=== PATIENT | female | born 1955 | race African-American/Black ===

== ENCOUNTER 2017-08-09 23:03 | Emergency (ER) | payer MEDICARE, OTHER ==
[~2017-08-09] VITALS: Ht 152.4 cm; Wt 75.0 kg
[~2017-08-09 23:03] MED LIST: CINA30 PO; DIVA500T35 PO; FISH1CAP49 PO; GLIP10 PO; METF500T4 PO; QUET25TA PO
[2017-08-09] MEDS ORDERED: CANA100T PO (23:18)
[2017-08-09] MEDS ORDERED: 0.9% SODIUM CHLORIDE 5 ML NEB SOLUTION NEB ONE (23:25)
[2017-08-09 23:28] LABS: GLUCOSE,POINT OF CARE 216 MG/DL (70-110)
[2017-08-09] MEDS ORDERED: IPRATROPIUM BROMIDE 0.5 MG/2.5 ML NEB SOLUTION NEB ONE (23:30)
[2017-08-09] MEDS ORDERED: ALBUTEROL SULFATE 5 MG/ML 20 ML NEB SOLN [BULK] NEB ONE (23:30)
[2017-08-10 02:31] LABS: BASOPHILS % (AUTO) 0.5 % (0.0-2.0); EOSINOPHILS % (AUTO) 0.1 % (1.0-6.0); HEMATOCRIT 50.7 % (36-46); HEMOGLOBIN 17.1 g/dL (12.0-16.0); LYMPHOCYTES % (AUTO) 14.2 % (22.0-44.0); MEAN CORPUSCULAR HEMOGLOBIN 32.3 pg (26.0-34.0); MEAN CORPUSCULAR HGB CONC 33.7 G/dL (31.0-37.0); MEAN CORPUSCULAR VOLUME 96 fL (80-100); MONOCYTES # (AUTO) 1.6 K/uL (0.1-1.0); MONOCYTES % (AUTO) 11.8 % (2.0-9.0); NEUTROPHILS # (AUTO) 10.1 K/uL (1.8-7.7); NEUTROPHILS % (AUTO) 73.4 % (40.0-70.0); PLATELET COUNT (AUTO) 214 K/uL (150-450); RED CELL DISTRIBUTION WIDTH 15.2 % (11.5-14.5)
[2017-08-10 02:38] LABS: ANION GAP 8 mmol/L (8-16); CALCIUM, TOTAL 10.4 mg/dL (8.8-10.5); CARBON DIOXIDE 27 mmol/L (22-29); CHLORIDE 104 mmol/L (98-107); CREATININE 1.04 mg/dL (0.60-1.30); GLOMERULAR FILTR. RATE CALC > 60 mL/min (>60); GLUCOSE,RANDOM 188 mg/dL (70-110); POTASSIUM 4.7 mmol/L (3.5-5.1); SODIUM SERUM 139 mmol/L (136-145); UREA NITROGEN, BLOOD 12 mg/dL (7-18)
[2017-08-10 02:41] LABS: INR 0.9 (0.9-1.1); PROTHROMBIN TIME 9.5 SEC (9.4-11.6)
[2017-08-10] MEDS ORDERED: MethylPREDNISolone SOD SUCC 125 MG/2 ML VIAL IVP ONE (02:45)
[2017-08-10 03:03] LABS: ALANINE AMINOTRANSFERASE 42 U/L (12-78); ALBUMIN 3.8 g/dL (3.4-5.0); ALKALINE PHOSPHATASE 99 U/L (46-116); ASPARTATE AMINOTRANSFERASE 35 U/L (15-37); BILIRUBIN,TOTAL 0.3 mg/dL (0.1-1.0); CKMB RELATIVE INDEX 1.3 % (0.0-4.0); CREATINE KINASE MB 10.9 ng/mL (0-5); CREATINE KINASE, TOTAL 811 U/L (26-192); TOTAL PROTEIN, SERUM 8.6 g/dL (6.4-8.2)
[2017-08-10 03:13] LABS: B-TYPE NATRIURETIC PEPTIDE < 5 pg/mL (0-100)
[2017-08-10 04:28] VITALS: BP 141/94
== END 2017-08-10 05:09 | disposition home or self-care (01) ==
LOC: EMS 23:05
DX: J45.909 Unspecified asthma, uncomplicated (principal); E11.9 Type 2 diabetes mellitus without complications; E03.9 Hypothyroidism, unspecified; F17.210 Nicotine dependence, cigarettes, uncomplicated; Z91.018 Allergy to other foods
CPT/HCPCS: 36415; 71045; 80053; 82550; 82553; 82962; 83880; 84484; 85025; 85610; 85730; 93005; 94644; 96374; 99285; J2930

== ENCOUNTER 2017-09-02 11:59 | Inpatient (IN) | payer MEDICARE, MEDICAID ==
[~2017-09-02] VITALS: Ht 160 cm; Wt 69.4 kg
[~2017-09-02 11:59] MED LIST changes: +CANA100T PO
[2017-09-02] MEDS ORDERED: INSULIN REGULAR, HUMAN 100 UNITS/ML IVP ONE (12:30)
[2017-09-02] MEDS ORDERED: SODIUM CHLORIDE 0.9% 2,000 ML IV ONE (12:30)
[2017-09-02 12:32] LABS: GLUCOSE,POINT OF CARE > 600 MG/DL (70-110)
[2017-09-02 13:13] LABS: BASOPHILS % (AUTO) 0.6 % (0.0-2.0); EOSINOPHILS % (AUTO) 0.3 % (1.0-6.0); HEMATOCRIT 50.9 % (36-46); HEMOGLOBIN 17.3 g/dL (12.0-16.0); LYMPHOCYTES # (AUTO) 2.3 K/uL (1.0-4.8); LYMPHOCYTES % (AUTO) 27.2 % (22.0-44.0); MEAN CORPUSCULAR HEMOGLOBIN 32.1 pg (26.0-34.0); MEAN CORPUSCULAR HGB CONC 34.1 G/dL (31.0-37.0); MEAN CORPUSCULAR VOLUME 94 fL (80-100); MONOCYTES # (AUTO) 0.8 K/uL (0.1-1.0); MONOCYTES % (AUTO) 9.1 % (2.0-9.0); NEUTROPHILS # (AUTO) 5.3 K/uL (1.8-7.7); NEUTROPHILS % (AUTO) 62.8 % (40.0-70.0); PLATELET COUNT (AUTO) 238 K/uL (150-450); RED BLOOD CELL COUNT(AUTO) 5.41 MIL/uL (4.00-5.20); RED CELL DISTRIBUTION WIDTH 14.2 % (11.5-14.5)
[2017-09-02 13:32] LABS: ALANINE AMINOTRANSFERASE 100 U/L (12-78); ALBUMIN 3.4 g/dL (3.4-5.0); ALKALINE PHOSPHATASE 190 U/L (46-116); ANION GAP 10 mmol/L (8-16); ASPARTATE AMINOTRANSFERASE 50 U/L (15-37); BILIRUBIN,TOTAL 0.4 mg/dL (0.1-1.0); CALCIUM, TOTAL 10.9 mg/dL (8.8-10.5); CARBON DIOXIDE 25 mmol/L (22-29); CHLORIDE 93 mmol/L (98-107); CREATININE 1.27 mg/dL (0.60-1.30); GLOMERULAR FILTR. RATE CALC 52 mL/min (>60); POTASSIUM 4.9 mmol/L (3.5-5.1); SODIUM SERUM 128 mmol/L (136-145); TOTAL PROTEIN, SERUM 8.2 g/dL (6.4-8.2); UREA NITROGEN, BLOOD 18 mg/dL (7-18)
[2017-09-02 13:37] LABS: GLUCOSE,RANDOM 613 mg/dL (70-110); VALPROIC ACID < 3 mcg/mL (50-100)
[2017-09-02] MEDS ORDERED: MetFORMIN HCL 500 MG TABLET PO ONE (14:45)
[2017-09-02] MEDS ORDERED: GlipiZIDE 10 MG TABLET PO ONE (14:45)
[2017-09-02] MEDS ORDERED: LORazepam 2 MG TABLET PO ONE (14:45)
[2017-09-02] MEDS ORDERED: SODIUM CHLORIDE 0.9% 1,000 ML IV ONE (14:45)
[2017-09-02] MEDS ORDERED: GlipiZIDE 5 MG TABLET PO ONE (14:45)
[2017-09-02] MEDS ORDERED: HALOPERIDOL 5 MG TABLET PO ONE (14:45)
[2017-09-02 15:17] LABS: AMPHET/METH SCREEN,URINE NEGATIVE (NEGATIVE); BARBITURATE SCREEN, URINE NEGATIVE (NEGATIVE); BENZODIAZEPINES SCREEN,URINE NEGATIVE (NEGATIVE); CANNABINOID SCREEN,URINE NEGATIVE (NEGATIVE); COCAINE SCREEN,URINE NEGATIVE (NEGATIVE); METHADONE SCREEN, URINE NEGATIVE (NEGATIVE); OPIATE SCREEN,URINE NEGATIVE (NEGATIVE); PHENCYCLIDINE SCREEN,URINE NEGATIVE (NEGATIVE)
[2017-09-02 15:22] LABS: APPEARANCE,URINE CLEAR (CLEAR); BILIRUBIN,URINE NEGATIVE (NEGATIVE); GLUCOSE, URINE (UA) >=1000 mg/dL (NEGATIVE); KETONES,URINE 15 mg/dL (NEGATIVE); LEUKOCYTE ESTERASE ,URINE NEGATIVE (NEGATIVE); NITRATE,URINE NEGATIVE (NEGATIVE); OCCULT BLOOD,URINE NEGATIVE (NEGATIVE); PH,URINE 5.5 (5.0-8.0); PROTEIN,URINE NEGATIVE (NEGATIVE); UROBILINOGEN,URINE 0.2 mg/dL (<=1.0)
[2017-09-02 15:27] LABS: GLUCOSE,POINT OF CARE 292 MG/DL (70-110)
[2017-09-02] MEDS: DiphenhydrAMINE HCL 25 MG CAPSULE PO ONE ×2 (15:39→15:45)
[2017-09-02 15:44] LABS: BACTERIA,URINE Rare /HPF (None Seen); RBC,URINE 0-2 /HPF (0-2); SQUAMOUS EPITHELIAL CELL,UR Few /LPF (None Seen); WBC,URINE 0-2 /HPF (0-5)
[2017-09-02] MEDS ORDERED: ZOLPIDEM TARTRATE 10 MG TABLET PO PRN (16:30)
[2017-09-02] MEDS ORDERED: HALOPERIDOL 5 MG TABLET PO PRN (16:30)
[2017-09-02] MEDS ORDERED: LORazepam 2 MG TABLET PO PRN (16:30)
[2017-09-02 16:52] LABS: GLUCOSE,POINT OF CARE 271 MG/DL (70-110)
[2017-09-02 17:30] VITALS: BP 164/81
[2017-09-02 18:45] VITALS: BP 150/89
[2017-09-02] MEDS ORDERED: DEXTROSE 50%-WATER 25 GM/50 ML SYRINGE IVP PRN (19:00)
[2017-09-02] MEDS ORDERED: PNEUMOCOCCAL VACCINE POLYVALENT 0.5 ML VIAL [PPSV23] IM ONE (20:00)
[2017-09-02] MEDS ORDERED: INFLUENZA VIRUS VACCINE QVS 2017-18 (3YR+)/PF 60 MCG/0.5 ML SYRINGE IM ONE (20:00)
[2017-09-03 00:30] VITALS: BP 139/85
[2017-09-03 05:43] LABS: GLUCOMETER DEV NAME(LOC) 3EI B; GLUCOSE,POINT OF CARE 358 MG/DL (70-110)
[2017-09-03] MEDS: MetFORMIN HCL 500 MG TABLET PO SCH ×2 (06:52→17:43)
[2017-09-03] MEDS: GlipiZIDE 10 MG TABLET PO SCH ×2 (06:53→16:46)
[2017-09-03] MEDS: CINACALCET HCL 30 MG TABLET PO SCH (06:53)
[2017-09-03 06:57] LABS: HEMOGLOBIN A1C 10.1 % (4.5-6.2)
[2017-09-03] MEDS ORDERED: CANAGLIFLOZIN 100 MG TABLET PO SCH (07:00)
[2017-09-03 07:11] LABS: FREE T4 (FREE THYROXINE) 1.2 ng/dL (0.76-1.46); THYROID STIMULATING HORMONE 3.72 uIU/mL (0.36-3.74)
[2017-09-03] MEDS: INSULIN ASPART 100 UNITS/ML - NON-FORMULARY SQ PRN ×3 (07:17→20:28)
[2017-09-03 08:20] VITALS: BP 165/76
[2017-09-03] MEDS: OMEGA-3/DHA/EPA/FISH OIL 1,000 MG CAPSULE PO SCH ×2 (08:36→16:46)
[2017-09-03] MEDS: ASPIRIN 81 MG CHEWABLE TABLET PO SCH (08:36)
[2017-09-03 11:12] LABS: GLUCOMETER DEV NAME(LOC) 3EX 1; GLUCOSE,POINT OF CARE 256 MG/DL (70-110)
[2017-09-03] MEDS: LISINOPRIL 5 MG TABLET PO SCH (12:12)
[2017-09-03 16:32] LABS: GLUCOMETER DEV NAME(LOC) 3EX 1; GLUCOSE,POINT OF CARE 503 MG/DL (70-110)
[2017-09-03 16:52] LABS: GLUCOMETER DEV NAME(LOC) 3EX 1; GLUCOSE,POINT OF CARE 501 MG/DL (70-110)
[2017-09-03] MEDS ORDERED: INSULIN ASPART 100 UNITS/ML - NON-FORMULARY SQ ONE (17:00)
[2017-09-03 19:31] VITALS: BP 134/77
[2017-09-03] MEDS: DIVALPROEX SODIUM 500 MG DR TABLET PO SCH (20:19)
[2017-09-03] MEDS: QUEtiapine FUMARATE 200 MG TABLET PO SCH (20:22)
[2017-09-03 20:27] LABS: GLUCOMETER DEV NAME(LOC) 3EX 1; GLUCOSE,POINT OF CARE 213 MG/DL (70-110)
[2017-09-03] MEDS ORDERED: INSULIN GLARGINE,HUM.REC.ANLOG 100 UNITS/ML SQ SCH ×2 (21:00)
[2017-09-04 02:05] VITALS: BP 129/79
[2017-09-04 06:38] LABS: GLUCOMETER DEV NAME(LOC) 3EX 1; GLUCOSE,POINT OF CARE 346 MG/DL (70-110)
[2017-09-04 06:39] LABS: BASOPHILS % (AUTO) 0.3 % (0.0-2.0); EOSINOPHILS % (AUTO) 0.8 % (1.0-6.0); HEMOGLOBIN 15.5 g/dL (12.0-16.0); LYMPHOCYTES # (AUTO) 3.4 K/uL (1.0-4.8); LYMPHOCYTES % (AUTO) 41.4 % (22.0-44.0); MEAN CORPUSCULAR HEMOGLOBIN 32.3 pg (26.0-34.0); MEAN CORPUSCULAR HGB CONC 34.4 G/dL (31.0-37.0); MEAN CORPUSCULAR VOLUME 94 fL (80-100); MONOCYTES # (AUTO) 0.8 K/uL (0.1-1.0); MONOCYTES % (AUTO) 9.7 % (2.0-9.0); NEUTROPHILS % (AUTO) 47.8 % (40.0-70.0); PLATELET COUNT (AUTO) 211 K/uL (150-450); RED BLOOD CELL COUNT(AUTO) 4.79 MIL/uL (4.00-5.20); RED CELL DISTRIBUTION WIDTH 14.2 % (11.5-14.5)
[2017-09-04] MEDS: GlipiZIDE 10 MG TABLET PO SCH ×2 (06:47→16:17)
[2017-09-04] MEDS: CINACALCET HCL 30 MG TABLET PO SCH (06:47)
[2017-09-04] MEDS: MetFORMIN HCL 500 MG TABLET PO SCH ×2 (06:47→16:41)
[2017-09-04] MEDS: INSULIN ASPART 100 UNITS/ML - NON-FORMULARY SQ PRN ×5 (07:27→21:16)
[2017-09-04 07:30] LABS: ALANINE AMINOTRANSFERASE 82 U/L (12-78); ALBUMIN 2.7 g/dL (3.4-5.0); ALKALINE PHOSPHATASE 142 U/L (46-116); ANION GAP 8 mmol/L (8-16); ASPARTATE AMINOTRANSFERASE 41 U/L (15-37); BILIRUBIN,TOTAL 0.3 mg/dL (0.1-1.0); CALCIUM, TOTAL 10.4 mg/dL (8.8-10.5); CARBON DIOXIDE 26 mmol/L (22-29); CHLORIDE 101 mmol/L (98-107); CKMB RELATIVE INDEX 3.7 % (0.0-4.0); CREATINE KINASE, TOTAL 242 U/L (26-192); CREATININE 1.06 mg/dL (0.60-1.30); GLOMERULAR FILTR. RATE CALC > 60 mL/min (>60); GLUCOSE,RANDOM 388 mg/dL (70-110); POTASSIUM 4.4 mmol/L (3.5-5.1); SODIUM SERUM 135 mmol/L (136-145); TOTAL PROTEIN, SERUM 6.6 g/dL (6.4-8.2); UREA NITROGEN, BLOOD 14 mg/dL (7-18)
[2017-09-04 08:30] VITALS: BP 148/79
[2017-09-04] MEDS ORDERED: FLUCONAZOLE 150 MG TABLET PO ONE (09:00)
[2017-09-04 09:50] LABS: FOLATE SERUM 6.4 ng/mL (5.4-)
[2017-09-04] MEDS: LISINOPRIL 5 MG TABLET PO SCH (10:03)
[2017-09-04] MEDS: ASPIRIN 81 MG CHEWABLE TABLET PO SCH (10:04)
[2017-09-04] MEDS: OMEGA-3/DHA/EPA/FISH OIL 1,000 MG CAPSULE PO SCH ×2 (10:04→16:17)
[2017-09-04] MEDS: DIVALPROEX SODIUM 500 MG DR TABLET PO SCH ×2 (10:04→20:16)
[2017-09-04] MEDS: MetroNIDAZOLE 500 MG TABLET PO SCH ×2 (10:47→16:17)
[2017-09-04 11:12] LABS: GLUCOMETER DEV NAME(LOC) 3EX 1; GLUCOSE,POINT OF CARE 291 MG/DL (70-110)
[2017-09-04 16:31] LABS: GLUCOMETER DEV NAME(LOC) 3EX 1; GLUCOSE,POINT OF CARE 351 MG/DL (70-110)
[2017-09-04 18:24] VITALS: BP 150/77
[2017-09-04] MEDS: QUEtiapine FUMARATE 200 MG TABLET PO SCH (20:17)
[2017-09-04 20:22] LABS: GLUCOMETER DEV NAME(LOC) 3EX 1; GLUCOSE,POINT OF CARE 151 MG/DL (70-110)
[2017-09-04] MEDS ORDERED: INSULIN GLARGINE,HUM.REC.ANLOG 100 UNITS/ML SQ SCH (21:00)
[2017-09-05 05:04] VITALS: BP 165/88
[2017-09-05 05:28] LABS: GLUCOMETER DEV NAME(LOC) 3EI B; GLUCOSE,POINT OF CARE 335 MG/DL (70-110)
[2017-09-05 05:45] VITALS: BP 141/86
[2017-09-05] MEDS: MetFORMIN HCL 500 MG TABLET PO SCH ×2 (07:01→16:53)
[2017-09-05] MEDS: CINACALCET HCL 30 MG TABLET PO SCH (07:01)
[2017-09-05] MEDS: GlipiZIDE 10 MG TABLET PO SCH ×2 (07:01→16:14)
[2017-09-05] MEDS: INSULIN ASPART 100 UNITS/ML - NON-FORMULARY SQ PRN ×4 (07:17→20:56)
[2017-09-05] MEDS: MetroNIDAZOLE 500 MG TABLET PO SCH ×2 (08:56→16:14)
[2017-09-05] MEDS: ASPIRIN 81 MG CHEWABLE TABLET PO SCH (08:56)
[2017-09-05] MEDS: MAGNESIUM OXIDE 400 MG TABLET PO SCH (08:56)
[2017-09-05] MEDS: OMEGA-3/DHA/EPA/FISH OIL 1,000 MG CAPSULE PO SCH ×2 (08:56→16:14)
[2017-09-05] MEDS: DIVALPROEX SODIUM 500 MG DR TABLET PO SCH ×2 (08:56→20:50)
[2017-09-05] MEDS: LISINOPRIL 5 MG TABLET PO SCH (08:57)
[2017-09-05 09:26] VITALS: BP 163/73
[2017-09-05 11:28] LABS: GLUCOMETER DEV NAME(LOC) 3EX 1; GLUCOSE,POINT OF CARE 177 MG/DL (70-110)
[2017-09-05] MEDS ORDERED: CloNIDine HCL 0.1 MG TABLET PO PRN (13:45)
[2017-09-05 16:17] LABS: GLUCOMETER DEV NAME(LOC) 3EX 1; GLUCOSE,POINT OF CARE 193 MG/DL (70-110)
[2017-09-05] MEDS ORDERED: INSULIN GLARGINE,HUM.REC.ANLOG 100 UNITS/ML SQ SCH (17:00)
[2017-09-05 17:38] VITALS: BP 136/75
[2017-09-05] MEDS: QUEtiapine FUMARATE 200 MG TABLET PO SCH (20:50)
[2017-09-05 20:57] LABS: GLUCOMETER DEV NAME(LOC) 3EX 1; GLUCOSE,POINT OF CARE 428 MG/DL (70-110)
[2017-09-05] MEDS ORDERED: INSULIN ASPART 100 UNITS/ML - NON-FORMULARY SQ ONE (21:30)
[2017-09-06 01:00] VITALS: BP 139/70
[2017-09-06 05:43] LABS: GLUCOMETER DEV NAME(LOC) 3EI B; GLUCOSE,POINT OF CARE 220 MG/DL (70-110)
[2017-09-06] MEDS: INSULIN GLARGINE,HUM.REC.ANLOG 100 UNITS/ML SQ SCH ×2 (07:09→17:00)
[2017-09-06] MEDS: INSULIN ASPART 100 UNITS/ML - NON-FORMULARY SQ PRN ×2 (07:10→12:28)
[2017-09-06] MEDS: MetFORMIN HCL 500 MG TABLET PO SCH ×2 (07:21→17:06)
[2017-09-06] MEDS: GlipiZIDE 10 MG TABLET PO SCH ×2 (07:21→17:05)
[2017-09-06] MEDS: CINACALCET HCL 30 MG TABLET PO SCH (07:25)
[2017-09-06] MEDS: DIVALPROEX SODIUM 500 MG DR TABLET PO SCH (08:30)
[2017-09-06] MEDS: ASPIRIN 81 MG CHEWABLE TABLET PO SCH (08:31)
[2017-09-06] MEDS: OMEGA-3/DHA/EPA/FISH OIL 1,000 MG CAPSULE PO SCH ×2 (08:31→17:05)
[2017-09-06] MEDS: MetroNIDAZOLE 500 MG TABLET PO SCH ×2 (08:31→17:05)
[2017-09-06] MEDS: MAGNESIUM OXIDE 400 MG TABLET PO SCH (08:32)
[2017-09-06] MEDS ORDERED: LISINOPRIL 20 MG TABLET PO SCH (09:00)
[2017-09-06 09:04] VITALS: BP 137/78
[2017-09-06 12:12] LABS: GLUCOMETER DEV NAME(LOC) 3EX 1; GLUCOSE,POINT OF CARE 112 MG/DL (70-110)
[2017-09-06] MEDS ORDERED: LISI-662 PO (14:34)
[2017-09-06] MEDS ORDERED: MAGOX PO (14:35)
[2017-09-06] MEDS ORDERED: METR500 PO (14:36)
[2017-09-06] MEDS ORDERED: INSLAN SQ (14:37)
[2017-09-06] MEDS ORDERED: ASPI81 PO (14:37)
[2017-09-06 17:07] LABS: GLUCOMETER DEV NAME(LOC) 3EX 1; GLUCOSE,POINT OF CARE 269 MG/DL (70-110)
== END 2017-09-06 17:15 | disposition home or self-care (01) | DRG 885 ==
LOC: EMS 12:00 → 3EX 17:16
DX: F31.2 Bipolar disorder, current episode manic severe with psychotic features (principal); E11.65 Type 2 diabetes mellitus with hyperglycemia; R45.851 Suicidal ideations; M62.82 Rhabdomyolysis; E87.1 Hypo-osmolality and hyponatremia; B96.89 Other specified bacterial agents as the cause of diseases classified elsewhere; E03.9 Hypothyroidism, unspecified; E55.9 Vitamin D deficiency, unspecified; E78.5 Hyperlipidemia, unspecified; N76.0 Acute vaginitis; F17.210 Nicotine dependence, cigarettes, uncomplicated; I10 Essential (primary) hypertension; R01.1 Cardiac murmur, unspecified; Z79.899 Other long term (current) drug therapy; Z91.14 Patient's other noncompliance with medication regimen; Z91.018 Allergy to other foods; Z79.84 Long term (current) use of oral hypoglycemic drugs
CPT/HCPCS: 80074; 82306; 82607; 82746; 82962; 83036; 83735; 84439; 84443; 96361; 96374; 99285; G0480; J1815; J7030

== ENCOUNTER 2017-09-10 01:05 | Emergency (ER) | payer MEDICARE, OTHER ==
[~2017-09-10] VITALS: Ht 162.6 cm; Wt 72.7 kg
[~2017-09-10 01:05] MED LIST changes: +ASPI81 PO; -CANA100T PO; +INSLAN SQ; +LISI-662 PO; +MAGOX PO; +METR500 PO
[2017-09-10] MEDS ORDERED: INSULIN REGULAR, HUMAN 100 UNITS/ML IVP ONE (02:00)
[2017-09-10 02:12] LABS: GLUCOSE,POINT OF CARE 582 MG/DL (70-110)
[2017-09-10 02:43] LABS: BASOPHILS % (AUTO) 0.8 % (0.0-2.0); EOSINOPHILS % (AUTO) 0.5 % (1.0-6.0); HEMATOCRIT 44.8 % (36-46); HEMOGLOBIN 15.1 g/dL (12.0-16.0); LYMPHOCYTES # (AUTO) 3.1 K/uL (1.0-4.8); LYMPHOCYTES % (AUTO) 35.2 % (22.0-44.0); MEAN CORPUSCULAR HEMOGLOBIN 31.8 pg (26.0-34.0); MEAN CORPUSCULAR HGB CONC 33.8 G/dL (31.0-37.0); MEAN CORPUSCULAR VOLUME 94 fL (80-100); MONOCYTES # (AUTO) 0.8 K/uL (0.1-1.0); MONOCYTES % (AUTO) 9.2 % (2.0-9.0); NEUTROPHILS # (AUTO) 4.8 K/uL (1.8-7.7); NEUTROPHILS % (AUTO) 54.3 % (40.0-70.0); PLATELET COUNT (AUTO) 241 K/uL (150-450); RED BLOOD CELL COUNT(AUTO) 4.76 MIL/uL (4.00-5.20); RED CELL DISTRIBUTION WIDTH 14.4 % (11.5-14.5)
[2017-09-10 03:02] LABS: GLUCOSE,POINT OF CARE 428 MG/DL (70-110)
[2017-09-10 03:07] LABS: ALBUMIN 2.9 g/dL (3.4-5.0); BILIRUBIN,TOTAL 0.4 mg/dL (0.1-1.0); CALCIUM, TOTAL 10.4 mg/dL (8.8-10.5); CREATININE 1.17 mg/dL (0.60-1.30); POTASSIUM 4.1 mmol/L (3.5-5.1)
[2017-09-10 04:19] VITALS: BP 127/71
== END 2017-09-10 04:23 | disposition home or self-care (01) ==
LOC: EMS 01:06
DX: S80.11XA Contusion of right lower leg, initial encounter (principal); S00.03XA Contusion of scalp, initial encounter; E11.65 Type 2 diabetes mellitus with hyperglycemia; F31.9 Bipolar disorder, unspecified; E11.9 Type 2 diabetes mellitus without complications; E03.9 Hypothyroidism, unspecified; F17.210 Nicotine dependence, cigarettes, uncomplicated; Z91.018 Allergy to other foods; Z79.4 Long term (current) use of insulin; W18.39XA Other fall on same level, initial encounter; Y93.89 Activity, other specified; Y92.89 Other specified places as the place of occurrence of the external cause; Y99.8 Other external cause status
CPT/HCPCS: 36415; 73590; 73630; 80053; 82962; 85025; 96374; 99285; J1815

== ENCOUNTER 2017-09-19 23:59 | Inpatient (IN) | payer MEDICARE, MEDICAID ==
[~2017-09-19] VITALS: Ht 167.6 cm; Wt 69.9 kg
[2017-09-20 01:53] LABS: EOSINOPHILS % (AUTO) 0.7 % (1.0-6.0); HEMATOCRIT 43.5 % (36-46); HEMOGLOBIN 14.7 g/dL (12.0-16.0); LYMPHOCYTES # (AUTO) 2.6 K/uL (1.0-4.8); LYMPHOCYTES % (AUTO) 31.3 % (22.0-44.0); MEAN CORPUSCULAR HEMOGLOBIN 31.7 pg (26.0-34.0); MEAN CORPUSCULAR HGB CONC 33.7 G/dL (31.0-37.0); MEAN CORPUSCULAR VOLUME 94 fL (80-100); MONOCYTES # (AUTO) 0.7 K/uL (0.1-1.0); NEUTROPHILS # (AUTO) 4.8 K/uL (1.8-7.7); PLATELET COUNT (AUTO) 238 K/uL (150-450); RED BLOOD CELL COUNT(AUTO) 4.62 MIL/uL (4.00-5.20); RED CELL DISTRIBUTION WIDTH 14.7 % (11.5-14.5)
[2017-09-20 01:56] LABS: ALANINE AMINOTRANSFERASE 82 U/L (12-78); ALKALINE PHOSPHATASE 180 U/L (46-116); ANION GAP 11 mmol/L (8-16); ASPARTATE AMINOTRANSFERASE 53 U/L (15-37); BILIRUBIN,TOTAL 0.3 mg/dL (0.1-1.0); CALCIUM, TOTAL 10.1 mg/dL (8.8-10.5); CARBON DIOXIDE 24 mmol/L (22-29); CHLORIDE 99 mmol/L (98-107); CREATININE 1.15 mg/dL (0.60-1.30); GLOMERULAR FILTR. RATE CALC 58 mL/min (>60); POTASSIUM 3.9 mmol/L (3.5-5.1); SODIUM SERUM 134 mmol/L (136-145); UREA NITROGEN, BLOOD 13 mg/dL (7-18)
[2017-09-20 02:00] LABS: GLUCOSE,RANDOM 590 mg/dL (70-110); VALPROIC ACID < 3 mcg/mL (50-100)
[2017-09-20] MEDS ORDERED: INSULIN REGULAR, HUMAN 100 UNITS/ML IVP ONE ×2 (02:15→04:45)
[2017-09-20] MEDS ORDERED: SODIUM CHLORIDE 0.9% 1,000 ML IV ONE ×2 (02:15→06:00)
[2017-09-20] MEDS ORDERED: LORazepam 2 MG/ML VIAL IM ONE (02:45)
[2017-09-20] MEDS ORDERED: DiphenhydrAMINE HCL 50 MG/ML VIAL IM ONE (02:45)
[2017-09-20] MEDS ORDERED: HALOPERIDOL LACTATE 5 MG/ML VIAL IM ONE (02:45)
[2017-09-20] MEDS ORDERED: HALOPERIDOL 5 MG TABLET PO PRN (03:45)
[2017-09-20] MEDS ORDERED: ACETAMINOPHEN 325 MG TABLET PO PRN (07:00)
[2017-09-20] MEDS ORDERED: IBUPROFEN 400 MG TABLET PO PRN (07:00)
[2017-09-20 08:45] VITALS: BP 152/77
[2017-09-20] MEDS: MAGNESIUM OXIDE 400 MG TABLET PO SCH (09:00)
[2017-09-20] MEDS: OMEGA-3/DHA/EPA/FISH OIL 1,000 MG CAPSULE PO SCH ×2 (10:00→16:43)
[2017-09-20] MEDS ORDERED: INFLUENZA VIRUS VACCINE QVS 2017-18 (3YR+)/PF 60 MCG/0.5 ML SYRINGE IM ONE (10:45)
[2017-09-20] MEDS ORDERED: PNEUMOCOCCAL VACCINE POLYVALENT 0.5 ML VIAL [PPSV23] IM ONE (10:45)
[2017-09-20] MEDS ORDERED: GLUCAGON,HUMAN RECOMBINANT 1 MG VIAL IM PRN (12:15)
[2017-09-20] MEDS: MetFORMIN HCL 500 MG TABLET PO SCH ×2 (12:25→18:11)
[2017-09-20] MEDS: LISINOPRIL 20 MG TABLET PO SCH (12:25)
[2017-09-20] MEDS: ASPIRIN 81 MG CHEWABLE TABLET PO SCH (12:25)
[2017-09-20] MEDS: DIVALPROEX SODIUM 500 MG DR TABLET PO SCH ×2 (12:25→16:35)
[2017-09-20] MEDS: INSULIN ASPART 100 UNITS/ML - NON-FORMULARY SQ PRN ×3 (13:51→21:58)
[2017-09-20 14:05] LABS: GLUCOSE,POINT OF CARE 563 MG/DL (70-110)
[2017-09-20 14:05] LABS: GLUCOSE,POINT OF CARE 332 MG/DL (70-110)
[2017-09-20 14:05] LABS: GLUCOSE,POINT OF CARE 464 MG/DL (70-110)
[2017-09-20 14:07] LABS: GLUCOSE,POINT OF CARE 202 MG/DL (70-110)
[2017-09-20 14:08] LABS: GLUCOMETER DEV NAME(LOC) BV3S 2; GLUCOSE,POINT OF CARE 228 MG/DL (70-110)
[2017-09-20] MEDS ORDERED: FLUCONAZOLE 150 MG TABLET PO ONE (14:45)
[2017-09-20 16:00] VITALS: BP 150/80
[2017-09-20] MEDS ORDERED: INSULIN GLARGINE,HUM.REC.ANLOG 100 UNITS/ML SQ SCH (16:30)
[2017-09-20] MEDS: CINACALCET HCL 30 MG TABLET PO SCH (16:34)
[2017-09-20] MEDS: GlipiZIDE 10 MG TABLET PO SCH (16:34)
[2017-09-20 17:27] LABS: GLUCOMETER DEV NAME(LOC) BV3S 2; GLUCOSE,POINT OF CARE 321 MG/DL (70-110)
[2017-09-20 17:35] VITALS: BP 120/66
[2017-09-21 00:13] VITALS: BP 121/80
[2017-09-21] MEDS: GlipiZIDE 10 MG TABLET PO SCH ×2 (06:41→16:09)
[2017-09-21] MEDS: MetFORMIN HCL 500 MG TABLET PO SCH ×2 (06:41→16:54)
[2017-09-21] MEDS: CINACALCET HCL 30 MG TABLET PO SCH (06:41)
[2017-09-21] MEDS: INSULIN GLARGINE,HUM.REC.ANLOG 100 UNITS/ML SQ SCH ×2 (06:43→16:14)
[2017-09-21] MEDS: ASPIRIN 81 MG CHEWABLE TABLET PO SCH (08:39)
[2017-09-21] MEDS: DIVALPROEX SODIUM 500 MG DR TABLET PO SCH ×2 (08:39→16:08)
[2017-09-21] MEDS: LISINOPRIL 20 MG TABLET PO SCH (08:40)
[2017-09-21] MEDS: MAGNESIUM OXIDE 400 MG TABLET PO SCH (08:43)
[2017-09-21 08:49] VITALS: BP 134/68
[2017-09-21] MEDS ORDERED: QUEtiapine FUMARATE 200 MG TABLET PO SCH (09:00)
[2017-09-21] MEDS: OMEGA-3/DHA/EPA/FISH OIL 1,000 MG CAPSULE PO SCH ×2 (09:05→16:08)
[2017-09-21 09:14] LABS: CHOL/HDL RATIO 1.9 (3.9-5.7); THYROID STIMULATING HORMONE 4.81 uIU/mL (0.36-3.74)
[2017-09-21 09:42] LABS: AMPHET/METH SCREEN,URINE NEGATIVE (NEGATIVE); BARBITURATE SCREEN, URINE NEGATIVE (NEGATIVE); BENZODIAZEPINES SCREEN,URINE NEGATIVE (NEGATIVE); CANNABINOID SCREEN,URINE NEGATIVE (NEGATIVE); COCAINE SCREEN,URINE NEGATIVE (NEGATIVE); METHADONE SCREEN, URINE NEGATIVE (NEGATIVE); OPIATE SCREEN,URINE NEGATIVE (NEGATIVE)
[2017-09-21 09:45] LABS: PHENCYCLIDINE SCREEN,URINE NEGATIVE (NEGATIVE)
[2017-09-21 10:04] LABS: BILIRUBIN,URINE NEGATIVE (NEGATIVE); GLUCOSE, URINE (UA) >=1000 mg/dL (NEGATIVE); KETONES,URINE NEGATIVE (NEGATIVE); LEUKOCYTE ESTERASE ,URINE NEGATIVE (NEGATIVE); NITRATE,URINE NEGATIVE (NEGATIVE); OCCULT BLOOD,URINE NEGATIVE (NEGATIVE); PH,URINE 6.5 (5.0-8.0); PROTEIN,URINE NEGATIVE (NEGATIVE); UROBILINOGEN,URINE 0.2 mg/dL (<=1.0)
[2017-09-21 10:44] LABS: APPEARANCE,URINE HAZY (CLEAR); BACTERIA,URINE None Seen /HPF (None Seen); RBC,URINE 0-2 /HPF (0-2); SQUAMOUS EPITHELIAL CELL,UR Many /LPF (None Seen); WBC,URINE 0-2 /HPF (0-5)
[2017-09-21 12:18] LABS: GLUCOMETER DEV NAME(LOC) BV3S 2; GLUCOSE,POINT OF CARE 150 MG/DL (70-110)
[2017-09-21 12:18] LABS: GLUCOMETER DEV NAME(LOC) BV3S 2; GLUCOSE,POINT OF CARE 74 MG/DL (70-110)
[2017-09-21 12:18] LABS: GLUCOMETER DEV NAME(LOC) BV3S 2; GLUCOSE,POINT OF CARE 132 MG/DL (70-110)
[2017-09-21] MEDS: INSULIN ASPART 100 UNITS/ML - NON-FORMULARY SQ PRN ×2 (16:15→21:00)
[2017-09-21 17:39] VITALS: BP 138/72
[2017-09-21 17:58] LABS: GLUCOMETER DEV NAME(LOC) BV3S 2; GLUCOSE,POINT OF CARE 352 MG/DL (70-110)
[2017-09-21 21:07] LABS: GLUCOMETER DEV NAME(LOC) BV3S 2; GLUCOSE,POINT OF CARE 345 MG/DL (70-110)
[2017-09-21] MEDS: ZOLPIDEM TARTRATE 10 MG TABLET PO PRN (22:35)
[2017-09-22] MEDS: LORazepam 2 MG TABLET PO PRN (03:09)
[2017-09-22] MEDS: GlipiZIDE 10 MG TABLET PO SCH ×2 (07:01→17:08)
[2017-09-22] MEDS: CINACALCET HCL 30 MG TABLET PO SCH (07:01)
[2017-09-22] MEDS: MetFORMIN HCL 500 MG TABLET PO SCH ×2 (07:01→17:00)
[2017-09-22] MEDS: INSULIN GLARGINE,HUM.REC.ANLOG 100 UNITS/ML SQ SCH ×2 (07:06→17:07)
[2017-09-22] MEDS: INSULIN ASPART 100 UNITS/ML - NON-FORMULARY SQ PRN ×3 (07:07→21:16)
[2017-09-22 07:22] LABS: GLUCOMETER DEV NAME(LOC) BV3S 2; GLUCOSE,POINT OF CARE 206 MG/DL (70-110)
[2017-09-22] MEDS: DIVALPROEX SODIUM 500 MG DR TABLET PO SCH ×2 (08:16→17:00)
[2017-09-22] MEDS: ASPIRIN 81 MG CHEWABLE TABLET PO SCH (08:16)
[2017-09-22] MEDS: OMEGA-3/DHA/EPA/FISH OIL 1,000 MG CAPSULE PO SCH ×2 (08:16→17:00)
[2017-09-22] MEDS: MAGNESIUM OXIDE 400 MG TABLET PO SCH (08:16)
[2017-09-22] MEDS: LISINOPRIL 20 MG TABLET PO SCH (08:16)
[2017-09-22 08:36] VITALS: BP 159/80
[2017-09-22] MEDS ORDERED: QUEtiapine FUMARATE 200 MG TABLET PO SCH (09:00)
[2017-09-22] MEDS ORDERED: QUEtiapine FUMARATE 200 MG TABLET PO ONE (09:00)
[2017-09-22 15:12] LABS: GLUCOMETER DEV NAME(LOC) BV3S 2; GLUCOSE,POINT OF CARE 110 MG/DL (70-110)
[2017-09-22 16:33] VITALS: BP 135/87
[2017-09-22 17:58] LABS: GLUCOMETER DEV NAME(LOC) BV3S 2; GLUCOSE,POINT OF CARE 192 MG/DL (70-110)
[2017-09-22] MEDS: QUEtiapine FUMARATE 200 MG TABLET PO SCH (20:56)
[2017-09-22] MEDS: ZOLPIDEM TARTRATE 10 MG TABLET PO PRN (20:56)
[2017-09-22 21:02] LABS: GLUCOMETER DEV NAME(LOC) BV3S 2; GLUCOSE,POINT OF CARE 245 MG/DL (70-110)
[2017-09-23 05:27] VITALS: BP 112/80
[2017-09-23] MEDS: GlipiZIDE 10 MG TABLET PO SCH ×2 (06:46→16:24)
[2017-09-23] MEDS: MetFORMIN HCL 500 MG TABLET PO SCH ×2 (06:46→16:24)
[2017-09-23] MEDS: CINACALCET HCL 30 MG TABLET PO SCH (06:46)
[2017-09-23] MEDS: INSULIN GLARGINE,HUM.REC.ANLOG 100 UNITS/ML SQ SCH ×2 (07:06→17:12)
[2017-09-23] MEDS: DIVALPROEX SODIUM 500 MG DR TABLET PO SCH ×2 (08:10→16:24)
[2017-09-23] MEDS: ASPIRIN 81 MG CHEWABLE TABLET PO SCH (08:10)
[2017-09-23] MEDS: MAGNESIUM OXIDE 400 MG TABLET PO SCH (08:10)
[2017-09-23] MEDS: LISINOPRIL 20 MG TABLET PO SCH (08:10)
[2017-09-23] MEDS: OMEGA-3/DHA/EPA/FISH OIL 1,000 MG CAPSULE PO SCH ×2 (08:10→16:24)
[2017-09-23 08:26] VITALS: BP 108/65
[2017-09-23] MEDS ORDERED: HYDROCORTISONE 1% 30 GM OINTMENT TP PRN (11:00)
[2017-09-23 11:12] LABS: GLUCOMETER DEV NAME(LOC) BV3S 2; GLUCOSE,POINT OF CARE 124 MG/DL (70-110)
[2017-09-23 11:12] LABS: GLUCOMETER DEV NAME(LOC) BV3S 2; GLUCOSE,POINT OF CARE 146 MG/DL (70-110)
[2017-09-23] MEDS: INSULIN ASPART 100 UNITS/ML - NON-FORMULARY SQ PRN ×3 (11:45→20:35)
[2017-09-23 16:26] VITALS: BP 122/64
[2017-09-23 16:42] LABS: GLUCOMETER DEV NAME(LOC) BV3S 2; GLUCOSE,POINT OF CARE 239 MG/DL (70-110)
[2017-09-23] MEDS: QUEtiapine FUMARATE 200 MG TABLET PO SCH (20:51)
[2017-09-23] MEDS: ZOLPIDEM TARTRATE 10 MG TABLET PO PRN (20:51)
[2017-09-23 21:18] LABS: GLUCOMETER DEV NAME(LOC) BV3S 2; GLUCOSE,POINT OF CARE 180 MG/DL (70-110)
[2017-09-24 05:47] VITALS: BP 110/61
[2017-09-24 06:17] LABS: GLUCOMETER DEV NAME(LOC) BV3S 2; GLUCOSE,POINT OF CARE 75 MG/DL (70-110)
[2017-09-24] MEDS: GlipiZIDE 10 MG TABLET PO SCH ×2 (06:46→16:19)
[2017-09-24] MEDS: CINACALCET HCL 30 MG TABLET PO SCH (06:47)
[2017-09-24] MEDS: MetFORMIN HCL 500 MG TABLET PO SCH ×2 (06:47→17:17)
[2017-09-24] MEDS: INSULIN GLARGINE,HUM.REC.ANLOG 100 UNITS/ML SQ SCH (06:53)
[2017-09-24 08:46] VITALS: BP 129/86
[2017-09-24 08:58] LABS: GLUCOMETER DEV NAME(LOC) BV3S 2; GLUCOSE,POINT OF CARE 137 MG/DL (70-110)
[2017-09-24] MEDS: MAGNESIUM OXIDE 400 MG TABLET PO SCH (09:50)
[2017-09-24] MEDS: OMEGA-3/DHA/EPA/FISH OIL 1,000 MG CAPSULE PO SCH ×2 (09:50→17:22)
[2017-09-24] MEDS: LISINOPRIL 20 MG TABLET PO SCH (09:50)
[2017-09-24] MEDS: ASPIRIN 81 MG CHEWABLE TABLET PO SCH (09:51)
[2017-09-24] MEDS: LORazepam 2 MG TABLET PO PRN ×2 (09:51→16:19)
[2017-09-24] MEDS: DIVALPROEX SODIUM 500 MG DR TABLET PO SCH ×2 (09:51→16:19)
[2017-09-24 16:15] VITALS: BP 146/76
[2017-09-24 17:32] LABS: GLUCOMETER DEV NAME(LOC) BV3S 2; GLUCOSE,POINT OF CARE 176 MG/DL (70-110)
[2017-09-24] MEDS: INSULIN ASPART 100 UNITS/ML - NON-FORMULARY SQ PRN ×2 (17:46→21:25)
[2017-09-24] MEDS: QUEtiapine FUMARATE 200 MG TABLET PO SCH (20:29)
[2017-09-24 22:07] LABS: GLUCOMETER DEV NAME(LOC) BV3S 2; GLUCOSE,POINT OF CARE 152 MG/DL (70-110)
[2017-09-25 06:16] VITALS: BP 134/85
[2017-09-25] MEDS: GlipiZIDE 10 MG TABLET PO SCH ×2 (06:55→16:15)
[2017-09-25] MEDS: MetFORMIN HCL 500 MG TABLET PO SCH ×2 (06:56→17:19)
[2017-09-25] MEDS: CINACALCET HCL 30 MG TABLET PO SCH (06:56)
[2017-09-25] MEDS: INSULIN ASPART 100 UNITS/ML - NON-FORMULARY SQ PRN ×2 (07:10→17:27)
[2017-09-25] MEDS: INSULIN GLARGINE,HUM.REC.ANLOG 100 UNITS/ML SQ SCH ×2 (07:11→17:27)
[2017-09-25 08:11] VITALS: BP 119/65
[2017-09-25 08:14] VITALS: BP 119/65
[2017-09-25] MEDS: LISINOPRIL 20 MG TABLET PO SCH (08:27)
[2017-09-25] MEDS: ASPIRIN 81 MG CHEWABLE TABLET PO SCH (08:27)
[2017-09-25] MEDS: DIVALPROEX SODIUM 500 MG DR TABLET PO SCH ×2 (08:27→16:15)
[2017-09-25] MEDS: MAGNESIUM OXIDE 400 MG TABLET PO SCH (08:28)
[2017-09-25] MEDS: OMEGA-3/DHA/EPA/FISH OIL 1,000 MG CAPSULE PO SCH ×2 (08:28→16:15)
[2017-09-25 16:47] VITALS: BP 130/78
[2017-09-25 17:12] LABS: GLUCOMETER DEV NAME(LOC) BV3S 2; GLUCOSE,POINT OF CARE 103 MG/DL (70-110)
[2017-09-25 17:12] LABS: GLUCOMETER DEV NAME(LOC) BV3S 2; GLUCOSE,POINT OF CARE 291 MG/DL (70-110)
[2017-09-25 17:12] LABS: GLUCOMETER DEV NAME(LOC) BV3S 2; GLUCOSE,POINT OF CARE 245 MG/DL (70-110)
[2017-09-25] MEDS: QUEtiapine FUMARATE 200 MG TABLET PO SCH (21:16)
[2017-09-25 21:58] LABS: GLUCOMETER DEV NAME(LOC) BV3S 2; GLUCOSE,POINT OF CARE 129 MG/DL (70-110)
[2017-09-26] MEDS ORDERED: INSULIN GLARGINE,HUM.REC.ANLOG 100 UNITS/ML SQ SCH ×2 (06:30→16:30)
[2017-09-26] MEDS: GlipiZIDE 10 MG TABLET PO SCH ×2 (06:43→16:20)
[2017-09-26] MEDS: CINACALCET HCL 30 MG TABLET PO SCH (06:43)
[2017-09-26] MEDS: MetFORMIN HCL 500 MG TABLET PO SCH ×2 (06:43→16:57)
[2017-09-26 07:17] LABS: GLUCOMETER DEV NAME(LOC) BV3S 2; GLUCOSE,POINT OF CARE 48 MG/DL (70-110)
[2017-09-26 07:17] LABS: GLUCOMETER DEV NAME(LOC) BV3S 2; GLUCOSE,POINT OF CARE 90 MG/DL (70-110)
[2017-09-26 07:18] VITALS: BP 112/62
[2017-09-26 08:06] VITALS: BP 130/73
[2017-09-26] MEDS: DIVALPROEX SODIUM 500 MG DR TABLET PO SCH ×2 (09:55→16:57)
[2017-09-26] MEDS: MAGNESIUM OXIDE 400 MG TABLET PO SCH (09:55)
[2017-09-26] MEDS: OMEGA-3/DHA/EPA/FISH OIL 1,000 MG CAPSULE PO SCH ×2 (09:56→16:57)
[2017-09-26] MEDS: ASPIRIN 81 MG CHEWABLE TABLET PO SCH (09:56)
[2017-09-26] MEDS: LISINOPRIL 20 MG TABLET PO SCH (09:56)
[2017-09-26 11:57] LABS: GLUCOMETER DEV NAME(LOC) BV3S 2; GLUCOSE,POINT OF CARE 60 MG/DL (70-110)
[2017-09-26 16:10] VITALS: BP 149/95
[2017-09-26 17:30] VITALS: BP 138/88
[2017-09-26 18:22] LABS: GLUCOMETER DEV NAME(LOC) BV3S 2; GLUCOSE,POINT OF CARE 122 MG/DL (70-110)
[2017-09-26] MEDS: QUEtiapine FUMARATE 200 MG TABLET PO SCH (20:10)
[2017-09-26 20:28] LABS: GLUCOMETER DEV NAME(LOC) BV3S 2; GLUCOSE,POINT OF CARE 285 MG/DL (70-110)
[2017-09-26] MEDS ORDERED: GLUCAGON,HUMAN RECOMBINANT 1 MG VIAL IM PRN (21:00)
[2017-09-26] MEDS: INSULIN LISPRO 100 UNITS/ML SQ PRN (21:41)
[2017-09-26] MEDS: ZOLPIDEM TARTRATE 10 MG TABLET PO PRN (22:01)
[2017-09-27] MEDS: GlipiZIDE 10 MG TABLET PO SCH (06:30)
[2017-09-27] MEDS ORDERED: INSULIN GLARGINE,HUM.REC.ANLOG 100 UNITS/ML SQ SCH (06:30)
[2017-09-27] MEDS: MetFORMIN HCL 500 MG TABLET PO SCH ×2 (07:00→16:39)
[2017-09-27 07:03] VITALS: BP 128/72
[2017-09-27] MEDS: CINACALCET HCL 30 MG TABLET PO SCH (07:16)
[2017-09-27 07:17] LABS: GLUCOMETER DEV NAME(LOC) BV3S 2; GLUCOSE,POINT OF CARE 44 MG/DL (70-110)
[2017-09-27 07:17] LABS: GLUCOMETER DEV NAME(LOC) BV3S 2; GLUCOSE,POINT OF CARE 78 MG/DL (70-110)
[2017-09-27 08:08] VITALS: BP 133/64
[2017-09-27] MEDS: OMEGA-3/DHA/EPA/FISH OIL 1,000 MG CAPSULE PO SCH ×2 (08:49→16:40)
[2017-09-27] MEDS: DIVALPROEX SODIUM 500 MG DR TABLET PO SCH ×2 (08:50→16:40)
[2017-09-27] MEDS: ASPIRIN 81 MG CHEWABLE TABLET PO SCH (08:50)
[2017-09-27] MEDS: LISINOPRIL 20 MG TABLET PO SCH (08:50)
[2017-09-27] MEDS: MAGNESIUM OXIDE 400 MG TABLET PO SCH (08:50)
[2017-09-27] MEDS: INSULIN GLARGINE,HUM.REC.ANLOG 100 UNITS/ML SQ SCH ×2 (09:00→09:34)
[2017-09-27] MEDS: INSULIN LISPRO 100 UNITS/ML SQ PRN ×2 (11:44→16:49)
[2017-09-27 16:13] VITALS: BP 141/77
[2017-09-27] MEDS: GlipiZIDE 5 MG TABLET PO SCH (16:40)
[2017-09-27 17:02] LABS: GLUCOMETER DEV NAME(LOC) BV3S 2; GLUCOSE,POINT OF CARE 220 MG/DL (70-110)
[2017-09-27 17:02] LABS: GLUCOMETER DEV NAME(LOC) BV3S 2; GLUCOSE,POINT OF CARE 239 MG/DL (70-110)
[2017-09-27 17:02] LABS: GLUCOMETER DEV NAME(LOC) BV3S 2; GLUCOSE,POINT OF CARE 279 MG/DL (70-110)
[2017-09-27] MEDS: QUEtiapine FUMARATE 200 MG TABLET PO SCH (21:07)
[2017-09-27] MEDS: LORazepam 2 MG TABLET PO PRN (21:07)
[2017-09-27 21:12] LABS: GLUCOMETER DEV NAME(LOC) BV3S 2; GLUCOSE,POINT OF CARE 277 MG/DL (70-110)
[2017-09-28] MEDS: CINACALCET HCL 30 MG TABLET PO SCH (06:59)
[2017-09-28] MEDS: MetFORMIN HCL 500 MG TABLET PO SCH ×2 (07:00→16:26)
[2017-09-28] MEDS: GlipiZIDE 5 MG TABLET PO SCH (07:00)
[2017-09-28 07:16] LABS: GLUCOMETER DEV NAME(LOC) BV3S 2; GLUCOSE,POINT OF CARE 75 MG/DL (70-110)
[2017-09-28 07:17] VITALS: BP 113/68
[2017-09-28] MEDS: ASPIRIN 81 MG CHEWABLE TABLET PO SCH (08:43)
[2017-09-28] MEDS: DIVALPROEX SODIUM 500 MG DR TABLET PO SCH ×2 (08:43→16:25)
[2017-09-28] MEDS: LISINOPRIL 20 MG TABLET PO SCH (08:43)
[2017-09-28] MEDS: MAGNESIUM OXIDE 400 MG TABLET PO SCH (08:43)
[2017-09-28] MEDS: LORazepam 2 MG TABLET PO PRN (08:43)
[2017-09-28] MEDS: OMEGA-3/DHA/EPA/FISH OIL 1,000 MG CAPSULE PO SCH ×2 (08:44→16:26)
[2017-09-28 08:52] VITALS: BP 133/68
[2017-09-28] MEDS: INSULIN GLARGINE,HUM.REC.ANLOG 100 UNITS/ML SQ SCH (09:34)
[2017-09-28 11:17] LABS: GLUCOMETER DEV NAME(LOC) BV3S 2; GLUCOSE,POINT OF CARE 156 MG/DL (70-110)
[2017-09-28] MEDS: INSULIN LISPRO 100 UNITS/ML SQ PRN (12:23)
[2017-09-28] MEDS ORDERED: DIVA500T35 PO (13:53)
[2017-09-28] MEDS ORDERED: QUET200T29 PO (13:53)
[2017-09-28] MEDS ORDERED: GLIP5 PO (14:51)
[2017-09-28 16:00] VITALS: BP 132/81
[2017-09-28 16:57] LABS: GLUCOMETER DEV NAME(LOC) BV3S 2; GLUCOSE,POINT OF CARE 92 MG/DL (70-110)
[2017-09-29] MEDS ORDERED: GlipiZIDE 5 MG TABLET PO SCH (09:00)
[2017-09-29] MEDS ORDERED: INSULIN GLARGINE,HUM.REC.ANLOG 100 UNITS/ML SQ SCH (09:00)
== END 2017-09-28 18:50 | disposition home or self-care (01) | DRG 885 ==
LOC: EMS 09-20 → B3A 09-20 06:56
PROC: 3E0234Z Introduction of Serum, Toxoid and Vaccine into Muscle, Percutaneous Approach (ICD-10-PCS; principal; 2017-09-20)
DX: F31.2 Bipolar disorder, current episode manic severe with psychotic features (principal); E11.649 Type 2 diabetes mellitus with hypoglycemia without coma; E11.65 Type 2 diabetes mellitus with hyperglycemia; E03.9 Hypothyroidism, unspecified; F17.200 Nicotine dependence, unspecified, uncomplicated; G47.00 Insomnia, unspecified; F19.10 Other psychoactive substance abuse, uncomplicated; I10 Essential (primary) hypertension; Z79.899 Other long term (current) drug therapy; Z91.018 Allergy to other foods; Z79.84 Long term (current) use of oral hypoglycemic drugs; Z79.82 Long term (current) use of aspirin; Z79.4 Long term (current) use of insulin; Z23 Encounter for immunization
CPT/HCPCS: 80307; 82962; 83036; 84439; 84443; 96361; 96372; 96374; 99285; G0480; J1200; J1630; J1815; J2060; J7030

== ENCOUNTER 2018-01-20 20:50 | Inpatient (IN) | payer MEDICARE, MEDICAID ==
[~2018-01-20] VITALS: Ht 162.6 cm; Wt 72.2 kg
[~2018-01-20 20:50] MED LIST changes: +DIVA-78 PO; -DIVA500T35 PO; -GLIP10 PO; +GLIP5 PO; -METF500T4 PO; +METF500T6 PO; -METR500 PO; +QUET200T29 PO
[2018-01-20 21:40] LABS: EOSINOPHILS % (AUTO) 3.3 % (1.0-6.0); HEMATOCRIT 47.2 % (36-46); HEMOGLOBIN 16.5 g/dL (12.0-16.0); LYMPHOCYTES # (AUTO) 2.9 K/uL (1.0-4.8); LYMPHOCYTES % (AUTO) 44.9 % (22.0-44.0); MEAN CORPUSCULAR HEMOGLOBIN 33.3 pg (26.0-34.0); MEAN CORPUSCULAR VOLUME 95 fL (80-100); MONOCYTES # (AUTO) 0.6 K/uL (0.1-1.0); MONOCYTES % (AUTO) 8.8 % (2.0-9.0); NEUTROPHILS # (AUTO) 2.8 K/uL (1.8-7.7); PLATELET COUNT (AUTO) 264 K/uL (150-450); RED BLOOD CELL COUNT(AUTO) 4.96 MIL/uL (4.00-5.20); RED CELL DISTRIBUTION WIDTH 14.4 % (11.5-14.5)
[2018-01-20 21:44] LABS: ANION GAP 12 mmol/L (8-16); CALCIUM, TOTAL 10.6 mg/dL (8.8-10.5); CARBON DIOXIDE 24 mmol/L (22-29); CHLORIDE 105 mmol/L (98-107); CREATININE 1.26 mg/dL (0.60-1.30); GLOMERULAR FILTR. RATE CALC 52 mL/min (>60); GLUCOSE,RANDOM 125 mg/dL (70-110); SODIUM SERUM 141 mmol/L (136-145); UREA NITROGEN, BLOOD 15 mg/dL (7-18)
[2018-01-20 21:50] LABS: ALANINE AMINOTRANSFERASE 26 U/L (12-78); ALKALINE PHOSPHATASE 80 U/L (46-116); ASPARTATE AMINOTRANSFERASE 17 U/L (15-37); BILIRUBIN,TOTAL 0.2 mg/dL (0.1-1.0); TOTAL PROTEIN, SERUM 8.1 g/dL (6.4-8.2)
[2018-01-21 00:38] LABS: APPEARANCE,URINE TURBID (CLEAR); BILIRUBIN,URINE NEGATIVE (NEGATIVE); GLUCOSE, URINE (UA) >=1000 mg/dL (NEGATIVE); KETONES,URINE NEGATIVE (NEGATIVE); LEUKOCYTE ESTERASE ,URINE MODERATE (NEGATIVE); NITRATE,URINE POSITIVE (NEGATIVE); OCCULT BLOOD,URINE SMALL (NEGATIVE); PH,URINE 5.5 (5.0-8.0); PROTEIN,URINE NEGATIVE (NEGATIVE); UROBILINOGEN,URINE 0.2 mg/dL (<=1.0)
[2018-01-21 00:43] LABS: AMPHET/METH SCREEN,URINE NEGATIVE (NEGATIVE); BARBITURATE SCREEN, URINE NEGATIVE (NEGATIVE); BENZODIAZEPINES SCREEN,URINE NEGATIVE (NEGATIVE); CANNABINOID SCREEN,URINE NEGATIVE (NEGATIVE); COCAINE SCREEN,URINE NEGATIVE (NEGATIVE); METHADONE SCREEN, URINE NEGATIVE (NEGATIVE); OPIATE SCREEN,URINE NEGATIVE (NEGATIVE)
[2018-01-21 00:44] LABS: PHENCYCLIDINE SCREEN,URINE NEGATIVE (NEGATIVE)
[2018-01-21] MEDS ORDERED: ZOLPIDEM TARTRATE 10 MG TABLET PO PRN (00:45)
[2018-01-21] MEDS ORDERED: QUEtiapine FUMARATE 100 MG TABLET PO ONE (00:45)
[2018-01-21] MEDS ORDERED: LORazepam 2 MG TABLET PO PRN (00:45)
[2018-01-21] MEDS ORDERED: HALOPERIDOL 5 MG TABLET PO PRN (00:45)
[2018-01-21 00:51] LABS: THYROID STIMULATING HORMONE 3.22 uIU/mL (0.36-3.74); VALPROIC ACID 40 mcg/mL (50-100)
[2018-01-21 00:56] LABS: BACTERIA,URINE Moderate /HPF (None Seen); SQUAMOUS EPITHELIAL CELL,UR Few /LPF (None Seen)
[2018-01-21] MEDS ORDERED: NITROFURANTOIN/NITROFURAN MAC 100 MG CAPSULE [MACROBID] PO ONE (02:30)
[2018-01-21 09:21] VITALS: BP 155/70
[2018-01-21] MEDS: DIVALPROEX SODIUM 500 MG DR TABLET PO SCH (17:40)
[2018-01-21] MEDS ORDERED: CloNIDine HCL 0.1 MG TABLET PO PRN (19:15)
[2018-01-21] MEDS ORDERED: IBUPROFEN 400 MG TABLET PO PRN (19:15)
[2018-01-21] MEDS ORDERED: ONDANSETRON HCL 4 MG TABLET PO PRN (19:15)
[2018-01-21] MEDS ORDERED: ACETAMINOPHEN 325 MG TABLET PO PRN (19:15)
[2018-01-21] MEDS ORDERED: DOCUSATE SODIUM 100 MG CAPSULE PO PRN (19:15)
[2018-01-21] MEDS ORDERED: LOPERAMIDE HCL 2 MG CAPSULE PO PRN (19:15)
[2018-01-21] MEDS ORDERED: ALBUTEROL SULFATE HFA 90 MCG/PUFF 8 GM INHALER IH PRN (19:15)
[2018-01-21] MEDS ORDERED: MAG HYDROX/AL HYDROX/SIMETH ES 30 ML SUSPENSION UDCUP PO PRN (19:15)
[2018-01-21] MEDS ORDERED: MAGNESIUM HYDROXIDE SUSPENSION 30 ML UDCUP PO PRN (19:15)
[2018-01-21] MEDS ORDERED: PETROLATUM,WHITE 71 GM JELLY TP PRN (19:15)
[2018-01-21] MEDS: QUEtiapine FUMARATE 200 MG TABLET PO SCH (20:50)
[2018-01-22] MEDS ORDERED: PNEUMOCOCCAL VACCINE POLYVALENT 0.5 ML VIAL [PPSV23] IM ONE (05:30)
[2018-01-22] MEDS: MetFORMIN HCL 500 MG TABLET PO SCH ×2 (06:44→17:06)
[2018-01-22] MEDS: GlipiZIDE 5 MG TABLET PO SCH (06:44)
[2018-01-22] MEDS ORDERED: DEXTROSE 50%-WATER 25 GM/50 ML SYRINGE IVP PRN (06:45)
[2018-01-22 06:48] LABS: GLUCOMETER DEV NAME(LOC) 3EI B; GLUCOSE,POINT OF CARE 127 MG/DL (70-110)
[2018-01-22] MEDS: INSULIN GLARGINE,HUM.REC.ANLOG 100 UNITS/ML SQ SCH ×2 (06:51→17:07)
[2018-01-22] MEDS ORDERED: CINACALCET HCL 30 MG TABLET PO SCH (07:30)
[2018-01-22] MEDS: CIPROFLOXACIN HCL 250 MG TABLET PO SCH ×2 (09:03→17:06)
[2018-01-22] MEDS: ASPIRIN 81 MG CHEWABLE TABLET PO SCH (09:03)
[2018-01-22] MEDS: NICOTINE 14 MG/24 HOUR PATCH TD SCH (09:04)
[2018-01-22] MEDS: DIVALPROEX SODIUM 500 MG DR TABLET PO SCH ×2 (09:04→17:05)
[2018-01-22] MEDS: OMEGA-3/DHA/EPA/FISH OIL 1,000 MG CAPSULE PO SCH ×2 (09:04→17:06)
[2018-01-22] MEDS: LISINOPRIL 20 MG TABLET PO SCH (09:04)
[2018-01-22 09:36] VITALS: BP 139/85
[2018-01-22 11:38] LABS: GLUCOMETER DEV NAME(LOC) 3EX 1; GLUCOSE,POINT OF CARE 72 MG/DL (70-110)
[2018-01-22 17:19] LABS: GLUCOMETER DEV NAME(LOC) 3EX 1; GLUCOSE,POINT OF CARE 130 MG/DL (70-110)
[2018-01-22] MEDS ORDERED: HYDROCORTISONE 0.5% 30 GM CREAM TP PRN (20:15)
[2018-01-22 20:24] LABS: GLUCOMETER DEV NAME(LOC) 3EX 1; GLUCOSE,POINT OF CARE 156 MG/DL (70-110)
[2018-01-22] MEDS: QUEtiapine FUMARATE 200 MG TABLET PO SCH (21:09)
[2018-01-22] MEDS: INSULIN LISPRO 100 UNITS/ML SQ PRN (21:25)
[2018-01-22 21:52] VITALS: BP 138/82
[2018-01-23 06:30] LABS: GLUCOMETER DEV NAME(LOC) 3EX 1; GLUCOSE,POINT OF CARE 126 MG/DL (70-110)
[2018-01-23] MEDS: GlipiZIDE 5 MG TABLET PO SCH (06:48)
[2018-01-23] MEDS: INSULIN GLARGINE,HUM.REC.ANLOG 100 UNITS/ML SQ SCH ×2 (06:48→17:10)
[2018-01-23] MEDS: MetFORMIN HCL 500 MG TABLET PO SCH ×2 (06:48→17:33)
[2018-01-23 08:32] VITALS: BP 139/88
[2018-01-23] MEDS: ASPIRIN 81 MG CHEWABLE TABLET PO SCH (08:39)
[2018-01-23] MEDS: CIPROFLOXACIN HCL 250 MG TABLET PO SCH ×2 (08:39→16:20)
[2018-01-23] MEDS: DIVALPROEX SODIUM 500 MG DR TABLET PO SCH ×2 (08:40→16:20)
[2018-01-23] MEDS: OMEGA-3/DHA/EPA/FISH OIL 1,000 MG CAPSULE PO SCH ×2 (08:40→16:20)
[2018-01-23] MEDS: QUEtiapine FUMARATE 200 MG TABLET PO SCH ×2 (08:40→20:43)
[2018-01-23] MEDS: LISINOPRIL 20 MG TABLET PO SCH (08:40)
[2018-01-23] MEDS: MAGNESIUM OXIDE 400 MG TABLET PO SCH (08:40)
[2018-01-23] MEDS: NICOTINE 14 MG/24 HOUR PATCH TD SCH (08:44)
[2018-01-23 11:49] LABS: GLUCOMETER DEV NAME(LOC) 3EX 1; GLUCOSE,POINT OF CARE 150 MG/DL (70-110)
[2018-01-23] MEDS: INSULIN LISPRO 100 UNITS/ML SQ PRN (11:50)
[2018-01-23 16:33] LABS: GLUCOMETER DEV NAME(LOC) 3EX 1; GLUCOSE,POINT OF CARE 89 MG/DL (70-110)
[2018-01-23 17:22] VITALS: BP 140/61
[2018-01-23 20:44] LABS: GLUCOMETER DEV NAME(LOC) 3EX 1; GLUCOSE,POINT OF CARE 138 MG/DL (70-110)
[2018-01-24 03:40] VITALS: BP 156/89
[2018-01-24 05:43] LABS: GLUCOMETER DEV NAME(LOC) PVLAB139; GLUCOSE,POINT OF CARE 115 MG/DL (70-110)
[2018-01-24] MEDS: GlipiZIDE 5 MG TABLET PO SCH (07:00)
[2018-01-24] MEDS: INSULIN GLARGINE,HUM.REC.ANLOG 100 UNITS/ML SQ SCH ×2 (07:03→17:17)
[2018-01-24] MEDS: MetFORMIN HCL 500 MG TABLET PO SCH ×2 (07:07→17:12)
[2018-01-24] MEDS: CIPROFLOXACIN HCL 250 MG TABLET PO SCH (08:36)
[2018-01-24] MEDS: ASPIRIN 81 MG CHEWABLE TABLET PO SCH (08:36)
[2018-01-24] MEDS: MAGNESIUM OXIDE 400 MG TABLET PO SCH (08:37)
[2018-01-24] MEDS: DIVALPROEX SODIUM 500 MG DR TABLET PO SCH ×2 (08:37→16:09)
[2018-01-24] MEDS: QUEtiapine FUMARATE 200 MG TABLET PO SCH ×2 (08:37→20:16)
[2018-01-24] MEDS: LISINOPRIL 20 MG TABLET PO SCH (08:37)
[2018-01-24] MEDS: OMEGA-3/DHA/EPA/FISH OIL 1,000 MG CAPSULE PO SCH ×2 (08:37→16:09)
[2018-01-24] MEDS: NICOTINE 14 MG/24 HOUR PATCH TD SCH (08:40)
[2018-01-24 09:14] VITALS: BP 137/95
[2018-01-24 11:49] LABS: GLUCOMETER DEV NAME(LOC) 3EX 1; GLUCOSE,POINT OF CARE 61 MG/DL (70-110)
[2018-01-24] MEDS: CIPROFLOXACIN HCL 500 MG TABLET PO SCH (16:09)
[2018-01-24 16:48] LABS: GLUCOMETER DEV NAME(LOC) 3EX 1; GLUCOSE,POINT OF CARE 106 MG/DL (70-110)
[2018-01-24 17:00] VITALS: BP 151/60
[2018-01-24 20:29] LABS: GLUCOMETER DEV NAME(LOC) 3EX 1; GLUCOSE,POINT OF CARE 149 MG/DL (70-110)
[2018-01-24] MEDS: INSULIN LISPRO 100 UNITS/ML SQ PRN (20:38)
[2018-01-25 05:43] LABS: GLUCOMETER DEV NAME(LOC) PVLAB139; GLUCOSE,POINT OF CARE 110 MG/DL (70-110)
[2018-01-25] MEDS: GlipiZIDE 5 MG TABLET PO SCH (07:06)
[2018-01-25] MEDS: MetFORMIN HCL 500 MG TABLET PO SCH ×2 (07:07→16:45)
[2018-01-25] MEDS: INSULIN GLARGINE,HUM.REC.ANLOG 100 UNITS/ML SQ SCH ×2 (07:17→17:26)
[2018-01-25 08:05] VITALS: BP 142/66
[2018-01-25] MEDS: OMEGA-3/DHA/EPA/FISH OIL 1,000 MG CAPSULE PO SCH ×2 (08:26→16:45)
[2018-01-25] MEDS: DIVALPROEX SODIUM 500 MG DR TABLET PO SCH ×2 (08:26→16:45)
[2018-01-25] MEDS: CIPROFLOXACIN HCL 500 MG TABLET PO SCH ×2 (08:27→16:45)
[2018-01-25] MEDS: MAGNESIUM OXIDE 400 MG TABLET PO SCH (08:27)
[2018-01-25] MEDS: ASPIRIN 81 MG CHEWABLE TABLET PO SCH (08:27)
[2018-01-25] MEDS: QUEtiapine FUMARATE 300 MG TABLET PO SCH (08:27)
[2018-01-25] MEDS: LISINOPRIL 20 MG TABLET PO SCH (08:27)
[2018-01-25] MEDS: NICOTINE 14 MG/24 HOUR PATCH TD SCH (08:32)
[2018-01-25 11:18] LABS: GLUCOMETER DEV NAME(LOC) 3EX 1; GLUCOSE,POINT OF CARE 101 MG/DL (70-110)
[2018-01-25 16:28] LABS: GLUCOMETER DEV NAME(LOC) 3EX 1; GLUCOSE,POINT OF CARE 112 MG/DL (70-110)
[2018-01-25 19:32] VITALS: BP 123/63
[2018-01-25] MEDS: QUEtiapine FUMARATE 200 MG TABLET PO SCH (20:09)
[2018-01-25] MEDS: INSULIN LISPRO 100 UNITS/ML SQ PRN (20:15)
[2018-01-25 20:18] LABS: GLUCOMETER DEV NAME(LOC) 3EX 1; GLUCOSE,POINT OF CARE 176 MG/DL (70-110)
[2018-01-26 05:49] LABS: GLUCOMETER DEV NAME(LOC) PVLAB139; GLUCOSE,POINT OF CARE 103 MG/DL (70-110)
[2018-01-26] MEDS: INSULIN GLARGINE,HUM.REC.ANLOG 100 UNITS/ML SQ SCH ×2 (06:58→16:33)
[2018-01-26] MEDS: GlipiZIDE 5 MG TABLET PO SCH (07:04)
[2018-01-26] MEDS: MetFORMIN HCL 500 MG TABLET PO SCH ×2 (07:22→16:55)
[2018-01-26] MEDS: CIPROFLOXACIN HCL 500 MG TABLET PO SCH ×2 (08:28→16:23)
[2018-01-26] MEDS: DIVALPROEX SODIUM 500 MG DR TABLET PO SCH ×2 (08:28→16:23)
[2018-01-26] MEDS: LISINOPRIL 20 MG TABLET PO SCH (08:28)
[2018-01-26] MEDS: OMEGA-3/DHA/EPA/FISH OIL 1,000 MG CAPSULE PO SCH ×2 (08:28→16:23)
[2018-01-26] MEDS: QUEtiapine FUMARATE 300 MG TABLET PO SCH (08:28)
[2018-01-26] MEDS: MAGNESIUM OXIDE 400 MG TABLET PO SCH (08:28)
[2018-01-26] MEDS: ASPIRIN 81 MG CHEWABLE TABLET PO SCH (08:28)
[2018-01-26] MEDS: NICOTINE 14 MG/24 HOUR PATCH TD SCH (08:29)
[2018-01-26 11:17] VITALS: BP 136/81
[2018-01-26 12:29] LABS: GLUCOMETER DEV NAME(LOC) 3EX 1; GLUCOSE,POINT OF CARE 112 MG/DL (70-110)
[2018-01-26 16:03] LABS: GLUCOMETER DEV NAME(LOC) 3EX 1; GLUCOSE,POINT OF CARE 108 MG/DL (70-110)
[2018-01-26 19:54] VITALS: BP 153/87
[2018-01-26] MEDS: INSULIN LISPRO 100 UNITS/ML SQ PRN (20:17)
[2018-01-26 20:18] LABS: GLUCOMETER DEV NAME(LOC) 3EX 1; GLUCOSE,POINT OF CARE 179 MG/DL (70-110)
[2018-01-26] MEDS: QUEtiapine FUMARATE 200 MG TABLET PO SCH (21:02)
[2018-01-27 05:43] LABS: GLUCOMETER DEV NAME(LOC) PVLAB139; GLUCOSE,POINT OF CARE 88 MG/DL (70-110)
[2018-01-27 06:12] VITALS: BP 142/79
[2018-01-27] MEDS: GlipiZIDE 5 MG TABLET PO SCH (07:03)
[2018-01-27] MEDS: INSULIN GLARGINE,HUM.REC.ANLOG 100 UNITS/ML SQ SCH ×2 (07:06→17:11)
[2018-01-27] MEDS: MetFORMIN HCL 500 MG TABLET PO SCH ×2 (07:22→17:13)
[2018-01-27] MEDS: QUEtiapine FUMARATE 300 MG TABLET PO SCH (08:23)
[2018-01-27] MEDS: ASPIRIN 81 MG CHEWABLE TABLET PO SCH (08:23)
[2018-01-27] MEDS: OMEGA-3/DHA/EPA/FISH OIL 1,000 MG CAPSULE PO SCH ×2 (08:23→16:37)
[2018-01-27] MEDS: CIPROFLOXACIN HCL 500 MG TABLET PO SCH ×2 (08:23→16:37)
[2018-01-27] MEDS: MAGNESIUM OXIDE 400 MG TABLET PO SCH (08:23)
[2018-01-27] MEDS: DIVALPROEX SODIUM 500 MG DR TABLET PO SCH ×2 (08:23→16:37)
[2018-01-27] MEDS: LISINOPRIL 20 MG TABLET PO SCH (08:23)
[2018-01-27] MEDS: NICOTINE 14 MG/24 HOUR PATCH TD SCH (08:24)
[2018-01-27 10:35] VITALS: BP 147/70
[2018-01-27 11:28] LABS: GLUCOMETER DEV NAME(LOC) 3EX 1; GLUCOSE,POINT OF CARE 74 MG/DL (70-110)
[2018-01-27 16:49] LABS: GLUCOMETER DEV NAME(LOC) 3EX 1; GLUCOSE,POINT OF CARE 104 MG/DL (70-110)
[2018-01-27 19:19] VITALS: BP 147/84
[2018-01-27 20:24] LABS: GLUCOMETER DEV NAME(LOC) 3EX 1; GLUCOSE,POINT OF CARE 120 MG/DL (70-110)
[2018-01-27] MEDS: QUEtiapine FUMARATE 200 MG TABLET PO SCH (22:00)
[2018-01-28 05:33] LABS: GLUCOMETER DEV NAME(LOC) 3EX 1; GLUCOSE,POINT OF CARE 99 MG/DL (70-110)
[2018-01-28 05:56] VITALS: BP 138/79
[2018-01-28] MEDS: GlipiZIDE 5 MG TABLET PO SCH (06:31)
[2018-01-28] MEDS: MetFORMIN HCL 500 MG TABLET PO SCH ×2 (06:31→17:09)
[2018-01-28] MEDS: INSULIN GLARGINE,HUM.REC.ANLOG 100 UNITS/ML SQ SCH ×2 (07:01→17:00)
[2018-01-28 08:15] VITALS: BP 145/66
[2018-01-28] MEDS: QUEtiapine FUMARATE 300 MG TABLET PO SCH (09:03)
[2018-01-28] MEDS: DIVALPROEX SODIUM 500 MG DR TABLET PO SCH ×2 (09:03→16:35)
[2018-01-28] MEDS: LISINOPRIL 20 MG TABLET PO SCH (09:03)
[2018-01-28] MEDS: MAGNESIUM OXIDE 400 MG TABLET PO SCH (09:03)
[2018-01-28] MEDS: OMEGA-3/DHA/EPA/FISH OIL 1,000 MG CAPSULE PO SCH ×2 (09:03→16:35)
[2018-01-28] MEDS: CIPROFLOXACIN HCL 500 MG TABLET PO SCH ×2 (09:03→16:35)
[2018-01-28] MEDS: ASPIRIN 81 MG CHEWABLE TABLET PO SCH (09:03)
[2018-01-28] MEDS: NICOTINE 14 MG/24 HOUR PATCH TD SCH (10:43)
[2018-01-28 11:14] LABS: GLUCOMETER DEV NAME(LOC) 3EX 1; GLUCOSE,POINT OF CARE 111 MG/DL (70-110)
[2018-01-28] MEDS ORDERED: QUET200T PO (13:50)
[2018-01-28] MEDS ORDERED: QUET300T2 PO (13:51)
[2018-01-28] MEDS ORDERED: CIPR-278 PO (13:53)
== END 2018-01-28 17:15 | disposition home or self-care (01) | DRG 885 ==
LOC: EMS 20:51 → 3EX 01-21 06:50
PROVIDERS: ADMIT Psychiatry & Neurology Psychiatry; ATTEND Psychiatry & Neurology Psychiatry
DX: F31.2 Bipolar disorder, current episode manic severe with psychotic features (principal); N39.0 Urinary tract infection, site not specified; E03.9 Hypothyroidism, unspecified; E11.9 Type 2 diabetes mellitus without complications; E78.5 Hyperlipidemia, unspecified; E83.52 Hypercalcemia; F17.200 Nicotine dependence, unspecified, uncomplicated; F41.9 Anxiety disorder, unspecified; I10 Essential (primary) hypertension; L23.9 Allergic contact dermatitis, unspecified cause; Z91.14 Patient's other noncompliance with medication regimen; Z71.6 Tobacco abuse counseling; Z79.899 Other long term (current) drug therapy; Z28.21 Immunization not carried out because of patient refusal; Z79.4 Long term (current) use of insulin; Z79.84 Long term (current) use of oral hypoglycemic drugs
CPT/HCPCS: 84443; 87086; 99285; 99406; G0480; J1815

== ENCOUNTER 2018-02-17 14:53 | Emergency (ER) | payer MEDICARE, OTHER ==
[~2018-02-17] VITALS: Ht 165.1 cm; Wt 71.0 kg
[~2018-02-17 14:53] MED LIST changes: -CINA30 PO; +CIPR-278 PO; +QUET200T PO; -QUET200T29 PO; -QUET25TA PO; +QUET300T2 PO
[2018-02-17 15:48] LABS: GLUCOSE,POINT OF CARE 146 MG/DL (70-110)
[2018-02-17 16:29] LABS: EOSINOPHILS % (AUTO) 3.8 % (1.0-6.0); HEMATOCRIT 46.6 % (36-46); HEMOGLOBIN 15.5 g/dL (12.0-16.0); LYMPHOCYTES # (AUTO) 3.2 K/uL (1.0-4.8); LYMPHOCYTES % (AUTO) 49.9 % (22.0-44.0); MEAN CORPUSCULAR HEMOGLOBIN 32.6 pg (26.0-34.0); MEAN CORPUSCULAR HGB CONC 33.3 G/dL (31.0-37.0); MEAN CORPUSCULAR VOLUME 98 fL (80-100); MONOCYTES # (AUTO) 0.6 K/uL (0.1-1.0); MONOCYTES % (AUTO) 9.1 % (2.0-9.0); NEUTROPHILS # (AUTO) 2.3 K/uL (1.8-7.7); NEUTROPHILS % (AUTO) 36.2 % (40.0-70.0); PLATELET COUNT (AUTO) 200 K/uL (150-450); RED BLOOD CELL COUNT(AUTO) 4.75 MIL/uL (4.00-5.20); RED CELL DISTRIBUTION WIDTH 14.3 % (11.5-14.5)
[2018-02-17 16:37] LABS: ANION GAP 10 mmol/L (8-16); CALCIUM, TOTAL 10.7 mg/dL (8.8-10.5); CARBON DIOXIDE 25 mmol/L (22-29); CHLORIDE 108 mmol/L (98-107); CREATININE 1.01 mg/dL (0.60-1.30); GLOMERULAR FILTR. RATE CALC > 60 mL/min (>60); GLUCOSE,RANDOM 129 mg/dL (70-110); POTASSIUM 4.3 mmol/L (3.5-5.1); SODIUM SERUM 143 mmol/L (136-145); UREA NITROGEN, BLOOD 13 mg/dL (7-18)
[2018-02-17 16:48] LABS: AMMONIA 25 umol/L (11-32)
[2018-02-17 16:50] LABS: TROPONIN I < 0.02 ng/mL (0.00-0.05)
[2018-02-17 17:01] LABS: ALANINE AMINOTRANSFERASE 29 U/L (12-78); ALBUMIN 3.3 g/dL (3.4-5.0); ALKALINE PHOSPHATASE 72 U/L (46-116); ASPARTATE AMINOTRANSFERASE 19 U/L (15-37); BILIRUBIN,TOTAL 0.3 mg/dL (0.1-1.0); CKMB RELATIVE INDEX 1.4 % (0.0-4.0); CREATINE KINASE MB 5.2 ng/mL (0-5); CREATINE KINASE, TOTAL 382 U/L (26-192); TOTAL PROTEIN, SERUM 6.9 g/dL (6.4-8.2)
[2018-02-17 17:34] LABS: AMPHET/METH SCREEN,URINE NEGATIVE (NEGATIVE); APPEARANCE,URINE CLEAR (CLEAR); BARBITURATE SCREEN, URINE NEGATIVE (NEGATIVE); BENZODIAZEPINES SCREEN,URINE NEGATIVE (NEGATIVE); BILIRUBIN,URINE NEGATIVE (NEGATIVE); CANNABINOID SCREEN,URINE NEGATIVE (NEGATIVE); COCAINE SCREEN,URINE NEGATIVE (NEGATIVE); GLUCOSE, URINE (UA) >=1000 mg/dL (NEGATIVE); KETONES,URINE NEGATIVE (NEGATIVE); LEUKOCYTE ESTERASE ,URINE NEGATIVE (NEGATIVE); METHADONE SCREEN, URINE NEGATIVE (NEGATIVE); NITRATE,URINE NEGATIVE (NEGATIVE); OCCULT BLOOD,URINE NEGATIVE (NEGATIVE); OPIATE SCREEN,URINE NEGATIVE (NEGATIVE); PROTEIN,URINE NEGATIVE (NEGATIVE); UROBILINOGEN,URINE 0.2 mg/dL (<=1.0)
[2018-02-17 17:35] LABS: PHENCYCLIDINE SCREEN,URINE NEGATIVE (NEGATIVE)
[2018-02-17 17:45] LABS: BACTERIA,URINE None Seen /HPF (None Seen); RBC,URINE 0-2 /HPF (0-2); SQUAMOUS EPITHELIAL CELL,UR Few /LPF (None Seen); WBC,URINE 0-2 /HPF (0-5)
[2018-02-17 18:36] VITALS: BP 139/81
[2018-02-17] MEDS ORDERED: MAG HYDROX/AL HYDROX/SIMETH 30 ML SUSP UDCUP PO ONE (18:45)
== END 2018-02-17 18:43 | disposition home or self-care (01) ==
LOC: EMS 14:54
DX: T42.4X5A Adverse effect of benzodiazepines, initial encounter (principal); E03.9 Hypothyroidism, unspecified; E11.9 Type 2 diabetes mellitus without complications; F31.9 Bipolar disorder, unspecified; F17.210 Nicotine dependence, cigarettes, uncomplicated; Z79.899 Other long term (current) drug therapy; Z91.018 Allergy to other foods; Z79.4 Long term (current) use of insulin; Z79.82 Long term (current) use of aspirin; Y92.89 Other specified places as the place of occurrence of the external cause
CPT/HCPCS: 51702; 70450; 87040; 93005; 99285

== ENCOUNTER 2018-03-02 09:52 | Emergency (ER) | payer MEDICARE, OTHER ==
[~2018-03-02] VITALS: Ht 165.1 cm; Wt 72.7 kg
[~2018-03-02 09:52] MED LIST changes: -CIPR-278 PO; -MAGOX PO; +METF-960 PO; -METF500T6 PO; -QUET300T2 PO
[2018-03-02 10:39] LABS: GLUCOSE,POINT OF CARE 214 MG/DL (70-110)
[2018-03-02 10:54] LABS: AMPHET/METH SCREEN,URINE NEGATIVE (NEGATIVE); BARBITURATE SCREEN, URINE NEGATIVE (NEGATIVE); BENZODIAZEPINES SCREEN,URINE NEGATIVE (NEGATIVE); CANNABINOID SCREEN,URINE NEGATIVE (NEGATIVE); COCAINE SCREEN,URINE NEGATIVE (NEGATIVE); METHADONE SCREEN, URINE NEGATIVE (NEGATIVE); OPIATE SCREEN,URINE NEGATIVE (NEGATIVE)
[2018-03-02 10:55] LABS: PHENCYCLIDINE SCREEN,URINE NEGATIVE (NEGATIVE)
[2018-03-02] MEDS ORDERED: LORazepam 1 MG TABLET PO ONE (11:00)
[2018-03-02 11:34] LABS: BASOPHILS % (AUTO) 0.8 % (0.0-2.0); EOSINOPHILS % (AUTO) 0.5 % (1.0-6.0); HEMATOCRIT 47.3 % (36-46); HEMOGLOBIN 16.1 g/dL (12.0-16.0); LYMPHOCYTES # (AUTO) 1.8 K/uL (1.0-4.8); LYMPHOCYTES % (AUTO) 36.1 % (22.0-44.0); MEAN CORPUSCULAR HEMOGLOBIN 33.3 pg (26.0-34.0); MEAN CORPUSCULAR HGB CONC 33.9 G/dL (31.0-37.0); MEAN CORPUSCULAR VOLUME 98 fL (80-100); MONOCYTES # (AUTO) 0.4 K/uL (0.1-1.0); MONOCYTES % (AUTO) 8.8 % (2.0-9.0); NEUTROPHILS # (AUTO) 2.7 K/uL (1.8-7.7); NEUTROPHILS % (AUTO) 53.8 % (40.0-70.0); PLATELET COUNT (AUTO) 245 K/uL (150-450); RED BLOOD CELL COUNT(AUTO) 4.82 MIL/uL (4.00-5.20); RED CELL DISTRIBUTION WIDTH 13.9 % (11.5-14.5)
[2018-03-02 12:04] LABS: ANION GAP 12 mmol/L (8-16); CALCIUM, TOTAL 10.2 mg/dL (8.8-10.5); CARBON DIOXIDE 23 mmol/L (22-29); CHLORIDE 106 mmol/L (98-107); CREATININE 1.12 mg/dL (0.60-1.30); GLOMERULAR FILTR. RATE CALC 60 mL/min (>60); GLUCOSE,RANDOM 187 mg/dL (70-110); POTASSIUM 4.2 mmol/L (3.5-5.1); SODIUM SERUM 141 mmol/L (136-145); UREA NITROGEN, BLOOD 6 mg/dL (7-18)
[2018-03-02 12:08] VITALS: BP 145/84
[2018-03-02 12:11] LABS: ALANINE AMINOTRANSFERASE 35 U/L (12-78); ALBUMIN 3.7 g/dL (3.4-5.0); ALKALINE PHOSPHATASE 79 U/L (46-116); ASPARTATE AMINOTRANSFERASE 24 U/L (15-37); BILIRUBIN,TOTAL 0.3 mg/dL (0.1-1.0); TOTAL PROTEIN, SERUM 7.7 g/dL (6.4-8.2)
[2018-03-02 12:37] LABS: VALPROIC ACID 18 mcg/mL (50-100)
== END 2018-03-02 14:04 | disposition home or self-care (01) ==
LOC: EMS 09:53
DX: F31.9 Bipolar disorder, unspecified (principal); E03.9 Hypothyroidism, unspecified; E11.9 Type 2 diabetes mellitus without complications; F17.210 Nicotine dependence, cigarettes, uncomplicated; Z91.018 Allergy to other foods; Z79.84 Long term (current) use of oral hypoglycemic drugs; Z79.899 Other long term (current) drug therapy; Z79.82 Long term (current) use of aspirin; Z79.4 Long term (current) use of insulin
CPT/HCPCS: 36415; 80053; 80164; 80307; 82962; 85025; 99285; G0480

== ENCOUNTER 2019-01-22 19:49 | Emergency (ER) | payer OTHER ==
[~2019-01-22] VITALS: Ht 165.1 cm; Wt 68.2 kg
[2019-01-22] MEDS ORDERED: CANA100T PO (20:31)
[2019-01-22] MEDS ORDERED: CINA30 PO (20:31)
[2019-01-22] MEDS ORDERED: LEVO137T24 PO (20:31)
[2019-01-22 21:29] LABS: BASOPHILS % (AUTO) 2.1 % (0.0-2.0); EOSINOPHILS % (AUTO) 1.2 % (1.0-6.0); HEMATOCRIT 48.6 % (36-46); HEMOGLOBIN 15.9 g/dL (12.0-16.0); LYMPHOCYTES # (AUTO) 2.3 K/uL (1.0-4.8); LYMPHOCYTES % (AUTO) 35.6 % (22.0-44.0); MEAN CORPUSCULAR HEMOGLOBIN 32.4 pg (26.0-34.0); MEAN CORPUSCULAR HGB CONC 32.8 G/dL (31.0-37.0); MEAN CORPUSCULAR VOLUME 99 fL (80-100); MONOCYTES # (AUTO) 0.7 K/uL (0.1-1.0); MONOCYTES % (AUTO) 10.5 % (2.0-9.0); NEUTROPHILS # (AUTO) 3.2 K/uL (1.8-7.7); NEUTROPHILS % (AUTO) 50.6 % (40.0-70.0); PLATELET COUNT (AUTO) 214 K/uL (150-450); RED BLOOD CELL COUNT(AUTO) 4.93 MIL/uL (4.00-5.20); RED CELL DISTRIBUTION WIDTH 14.1 % (11.5-14.5)
[2019-01-22 22:03] LABS: ALANINE AMINOTRANSFERASE 34 U/L (12-78); ALBUMIN 3.5 g/dL (3.4-5.0); ALKALINE PHOSPHATASE 120 U/L (46-116); ANION GAP 7 mmol/L (8-16); ASPARTATE AMINOTRANSFERASE 33 U/L (15-37); BILIRUBIN,TOTAL 0.5 mg/dL (0.1-1.0); CALCIUM, TOTAL 10.6 mg/dL (8.8-10.5); CARBON DIOXIDE 26 mmol/L (22-29); CHLORIDE 100 mmol/L (98-107); CREATININE 1.36 mg/dL (0.60-1.30); GLOMERULAR FILTR. RATE CALC 48 mL/min (>60); SODIUM SERUM 133 mmol/L (136-145); TOTAL PROTEIN, SERUM 7.7 g/dL (6.4-8.2); UREA NITROGEN, BLOOD 7 mg/dL (7-18)
[2019-01-22 22:07] LABS: GLUCOSE,RANDOM 496 mg/dL (70-110)
[2019-01-22 23:25] LABS: VALPROIC ACID 10 mcg/mL (50-100)
[2019-01-23] MEDS ORDERED: MetFORMIN HCL 500 MG TABLET PO ONE (00:30)
[2019-01-23] MEDS ORDERED: LORazepam 1 MG TABLET PO ONE (00:30)
[2019-01-23 01:04] LABS: GLUCOSE,POINT OF CARE 482 MG/DL (70-110)
[2019-01-23] MEDS ORDERED: QUEtiapine FUMARATE 300 MG TABLET PO ONE (01:15)
[2019-01-23 01:44] LABS: AMPHET/METH SCREEN,URINE NEGATIVE (NEGATIVE); BARBITURATE SCREEN, URINE NEGATIVE (NEGATIVE); BENZODIAZEPINES SCREEN,URINE NEGATIVE (NEGATIVE); CANNABINOID SCREEN,URINE NEGATIVE (NEGATIVE); COCAINE SCREEN,URINE NEGATIVE (NEGATIVE); METHADONE SCREEN, URINE NEGATIVE (NEGATIVE); OPIATE SCREEN,URINE NEGATIVE (NEGATIVE); PHENCYCLIDINE SCREEN,URINE NEGATIVE (NEGATIVE)
[2019-01-23 02:50] VITALS: BP 158/77
== END 2019-01-23 03:27 | disposition home or self-care (01) ==
LOC: EMS 19:50
DX: F31.9 Bipolar disorder, unspecified (principal); E11.65 Type 2 diabetes mellitus with hyperglycemia; N93.9 Abnormal uterine and vaginal bleeding, unspecified; E11.9 Type 2 diabetes mellitus without complications; E03.9 Hypothyroidism, unspecified; F17.210 Nicotine dependence, cigarettes, uncomplicated; Z79.899 Other long term (current) drug therapy; Z91.018 Allergy to other foods; Z79.82 Long term (current) use of aspirin
CPT/HCPCS: 36415; 80053; 80164; 80307; 82962; 85025; 99284; G0480

== ENCOUNTER 2019-08-12 12:50 | Emergency (ER) | payer MEDICARE, OTHER ==
[~2019-08-12] VITALS: Ht 165.1 cm; Wt 63.0 kg
[~2019-08-12 12:50] MED LIST changes: +ASPI-728 PO; -ASPI81 PO; +CANA100T PO; +CINA30 PO; -INSLAN SQ; +LEVO137T24 PO
[2019-08-12] MEDS ORDERED: AMOX250C4 PO (13:14)
[2019-08-12] MEDS ORDERED: FISH1 PO (13:28)
[2019-08-12] MEDS ORDERED: SODIUM CHLORIDE 0.9% 1,000 ML IV ONE (13:30)
[2019-08-12 13:45] LABS: GLUCOSE,POINT OF CARE 464 MG/DL (70-110)
[2019-08-12 14:01] LABS: BASOPHILS % (AUTO) 0.5 % (0.0-2.0); EOSINOPHILS % (AUTO) 0.6 % (1.0-6.0); HEMATOCRIT 49.3 % (36-46); HEMOGLOBIN 17.3 g/dL (12.0-16.0); LYMPHOCYTES # (AUTO) 2.2 K/uL (1.0-4.8); LYMPHOCYTES % (AUTO) 29.8 % (22.0-44.0); MEAN CORPUSCULAR HEMOGLOBIN 32.8 pg (26.0-34.0); MEAN CORPUSCULAR HGB CONC 35.2 G/dL (31.0-37.0); MEAN CORPUSCULAR VOLUME 93 fL (80-100); MONOCYTES # (AUTO) 0.6 K/uL (0.1-1.0); MONOCYTES % (AUTO) 8.3 % (2.0-9.0); NEUTROPHILS # (AUTO) 4.5 K/uL (1.8-7.7); NEUTROPHILS % (AUTO) 60.8 % (40.0-70.0); PLATELET COUNT (AUTO) 238 K/uL (150-450); RED BLOOD CELL COUNT(AUTO) 5.29 MIL/uL (4.00-5.20); RED CELL DISTRIBUTION WIDTH 14.2 % (11.5-14.5)
[2019-08-12 14:13] LABS: INR 0.9 (0.9-1.1); PROTHROMBIN TIME 9.1 SEC (9.4-11.6)
[2019-08-12 14:20] LABS: AMMONIA 10 umol/L (11-32)
[2019-08-12 14:29] LABS: LACTIC ACID 1.2 mmol/L (0.4-2.0)
[2019-08-12 14:30] LABS: TROPONIN I < 0.02 ng/mL (0.00-0.05)
[2019-08-12 14:39] LABS: ALANINE AMINOTRANSFERASE 58 U/L (12-78); ALBUMIN 3.4 g/dL (3.4-5.0); ALKALINE PHOSPHATASE 183 U/L (46-116); ANION GAP 11 mmol/L (8-16); ASPARTATE AMINOTRANSFERASE 38 U/L (15-37); BILIRUBIN,TOTAL 0.3 mg/dL (0.1-1.0); CALCIUM, TOTAL 10.1 mg/dL (8.8-10.5); CARBON DIOXIDE 22 mmol/L (22-29); CHLORIDE 97 mmol/L (98-107); CREATINE KINASE, TOTAL ONLY 186 U/L (26-192); CREATININE 1.34 mg/dL (0.60-1.30); GLOMERULAR FILTR. RATE CALC 48 mL/min (>60); LIPASE 237 U/L (73-393); POTASSIUM 4.2 mmol/L (3.5-5.1); SODIUM SERUM 130 mmol/L (136-145); THYROID STIMULATING HORMONE 18.05 uIU/mL (0.36-3.74); TOTAL PROTEIN, SERUM 8.2 g/dL (6.4-8.2); UREA NITROGEN, BLOOD 12 mg/dL (7-18)
[2019-08-12 14:42] LABS: GLUCOSE,RANDOM 476 mg/dL (70-110)
[2019-08-12 14:53] LABS: VALPROIC ACID < 3 mcg/mL (50-100)
[2019-08-12 14:58] LABS: GLUCOSE,POINT OF CARE 447 MG/DL (70-110)
[2019-08-12 15:22] LABS: AMPHET/METH SCREEN,URINE NEGATIVE (NEGATIVE); BARBITURATE SCREEN, URINE NEGATIVE (NEGATIVE); BENZODIAZEPINES SCREEN,URINE NEGATIVE (NEGATIVE); CANNABINOID SCREEN,URINE NEGATIVE (NEGATIVE); COCAINE SCREEN,URINE NEGATIVE (NEGATIVE); METHADONE SCREEN, URINE NEGATIVE (NEGATIVE); OPIATE SCREEN,URINE NEGATIVE (NEGATIVE)
[2019-08-12 15:28] LABS: APPEARANCE,URINE CLEAR (CLEAR); BILIRUBIN,URINE NEGATIVE (NEGATIVE); GLUCOSE, URINE (UA) >=1000 mg/dL (NEGATIVE); KETONES,URINE TRACE mg/dL (NEGATIVE); LEUKOCYTE ESTERASE ,URINE NEGATIVE (NEGATIVE); NITRATE,URINE NEGATIVE (NEGATIVE); OCCULT BLOOD,URINE NEGATIVE (NEGATIVE); PROTEIN,URINE NEGATIVE (NEGATIVE); UROBILINOGEN,URINE 0.2 mg/dL (<=1.0)
[2019-08-12 15:29] LABS: PHENCYCLIDINE SCREEN,URINE NEGATIVE (NEGATIVE)
[2019-08-12 15:49] LABS: BACTERIA,URINE Rare /HPF (None Seen); RBC,URINE 0-2 /HPF (0-2); SQUAMOUS EPITHELIAL CELL,UR Few /LPF (None Seen); WBC,URINE 0-2 /HPF (0-5); YEAST,URINE Few /HPF (None Seen)
[2019-08-12] MEDS ORDERED: ACETAMINOPHEN 325 MG TABLET PO PRN (16:00)
[2019-08-12] MEDS ORDERED: INSULIN REGULAR, HUMAN 100 UNITS/ML IVP ONE (16:00)
[2019-08-12] MEDS ORDERED: ONDANSETRON HCL 4 MG/2 ML VIAL IVP PRN (16:00)
[2019-08-12 16:38] LABS: GLUCOSE,POINT OF CARE 359 MG/DL (70-110)
[2019-08-12 17:36] LABS: GLUCOSE,POINT OF CARE 266 MG/DL (70-110)
[2019-08-12 18:00] VITALS: BP 145/70
== END 2019-08-12 19:24 | disposition home or self-care (01) ==
LOC: EMS 12:51
DX: E11.65 Type 2 diabetes mellitus with hyperglycemia (principal); E86.0 Dehydration; N28.9 Disorder of kidney and ureter, unspecified; F20.9 Schizophrenia, unspecified; F31.9 Bipolar disorder, unspecified; E03.9 Hypothyroidism, unspecified; F17.210 Nicotine dependence, cigarettes, uncomplicated; Z79.899 Other long term (current) drug therapy; Z86.73 Personal history of transient ischemic attack (TIA), and cerebral infarction without residual deficits; Z79.84 Long term (current) use of oral hypoglycemic drugs; Z91.018 Allergy to other foods
CPT/HCPCS: 36415; 70450; 71045; 80053; 80164; 80307; 81001; 82010; 82140; 82550; 82962; 83605; 83690; 83735; 84439; 84443; 84484; 85025; 85610; 87040; 96361; 96374; 99285; G0480; J1815; 82948

== ENCOUNTER 2022-06-13 12:08 | Inpatient (IN) | payer MEDICARE, OTHER ==
[~2022-06-13] VITALS: Ht 165.1 cm; Wt 61.4 kg
[~2022-06-13 12:08] MED LIST changes: +AMLO-257 PO; -ASPI-728 PO; +ASPI81 PO; +ATOR20TA65 PO; -CANA100T PO; +CEPH-558 PO; +CLIN300C58 PO; -DIVA-78 PO; +DIVA-80 PO; +DOCU-385 PO; +FAMO20 PO; +FISH1 PO; -FISH1CAP49 PO; -GLIP5 PO; +GLIP5TAB12 PO; +INSLAN SQ; +INSU100V SQ; -LEVO137T24 PO; +LEVO150 PO; +LINA5TAB PO; -LISI-662 PO; +LOSA-381 PO; -METF-960 PO
[2022-06-13 15:31] LABS: ANION GAP 8 mmol/L (8-16); CARBON DIOXIDE 25 mmol/L (22-29); CHLORIDE 99 mmol/L (98-107); CREATININE 1.04 mg/dL (0.60-1.30); GLUCOSE,RANDOM 335 mg/dL (70-110); POTASSIUM 4.7 mmol/L (3.5-5.1); SODIUM SERUM 132 mmol/L (136-145); UREA NITROGEN, BLOOD 21 mg/dL (7-18)
[2022-06-13 15:32] LABS: GLOMERULAR FILTR. RATE CALC > 60 mL/min (>60)
[2022-06-13 15:34] LABS: BASOPHILS % (AUTO) 0.9 % (0.0-2.0); EOSINOPHILS % (AUTO) 1.4 % (1.0-6.0); HEMATOCRIT 41.1 % (36-46); HEMOGLOBIN 14.1 g/dL (12.0-16.0); LYMPHOCYTES # (AUTO) 2.5 K/uL (1.0-4.8); LYMPHOCYTES % (AUTO) 34.8 % (22.0-44.0); MEAN CORPUSCULAR HEMOGLOBIN 32.2 pg (26.0-34.0); MEAN CORPUSCULAR HGB CONC 34.3 G/dL (31.0-37.0); MEAN CORPUSCULAR VOLUME 94 fL (80-100); MONOCYTES # (AUTO) 0.6 K/uL (0.1-1.0); MONOCYTES % (AUTO) 8.4 % (2.0-9.0); NEUTROPHILS % (AUTO) 54.5 % (40.0-70.0); PLATELET COUNT (AUTO) 290 K/uL (150-450); RED BLOOD CELL COUNT(AUTO) 4.38 MIL/uL (4.00-5.20); RED CELL DISTRIBUTION WIDTH 15.5 % (11.5-14.5)
[2022-06-13 15:36] LABS: ALANINE AMINOTRANSFERASE 44 U/L (12-78); ALBUMIN 3.3 g/dL (3.4-5.0); ALKALINE PHOSPHATASE 204 U/L (46-116); ASPARTATE AMINOTRANSFERASE 42 U/L (15-37); BILIRUBIN,TOTAL 0.4 mg/dL (0.1-1.0); TOTAL PROTEIN, SERUM 8.9 g/dL (6.4-8.2)
[2022-06-13 15:59] LABS: PROTHROMBIN TIME 10.3 SEC (9.4-11.6)
[2022-06-13 16:07] LABS: LACTIC ACID 2.1 mmol/L (0.4-2.0)
[2022-06-13] MEDS ORDERED: VANCOMYCIN 1GM/WATER(PEG/NADA) 200 ML IV ONE (16:30)
[2022-06-13] MEDS ORDERED: CefTRIAXone 1 GM/DEXTROSE 50 ML IV ONE (16:30)
[2022-06-13 16:47] LABS: COVID AG,FIA SOURCE NASAL SWAB
[2022-06-13] MEDS ORDERED: HYDROCODONE/ACETAMINOPHEN 5-325 MG TABLET PO PRN (21:15)
[2022-06-13] MEDS ORDERED: MORPHINE SULFATE 2 MG/ML SYRINGE IVP PRN (21:15)
[2022-06-13] MEDS ORDERED: ACETAMINOPHEN 325 MG TABLET PO PRN (21:15)
[2022-06-13] MEDS ORDERED: ONDANSETRON HCL 4 MG/2 ML VIAL IVP PRN (21:15)
[2022-06-13] MEDS ORDERED: BISACODYL 10 MG RECTAL RECTAL SUPPOSITORY PR PRN (21:15)
[2022-06-13] MEDS ORDERED: MAGNESIUM HYDROXIDE SUSPENSION 30 ML UDCUP PO PRN (21:15)
[2022-06-13 22:58] VITALS: BP 147/71
[2022-06-14] MEDS ORDERED: DEXTROSE 50%-WATER 25 GM/50 ML SYRINGE IVP PRN
[2022-06-14] MEDS: INSULIN LISPRO 100 UNITS/ML SQ PRN ×5 (00:08→21:27)
[2022-06-14] MEDS: HEPARIN SODIUM,PORCINE 5,000 UNITS/ML VIAL SQ SCH ×4 (00:19→23:31)
[2022-06-14] MEDS ORDERED: PNEUMOCOCCAL VACCINE POLYVALENT 0.5 ML VIAL [PPSV23] IM. ONE (05:00)
[2022-06-14 05:11] VITALS: BP 159/94
[2022-06-14] MEDS: LEVOTHYROXINE SODIUM 150 MCG TABLET PO SCH (07:03)
[2022-06-14] MEDS: GlipiZIDE 5 MG TABLET PO SCH (07:03)
[2022-06-14 07:50] LABS: ANION GAP 8 mmol/L (8-16); CALCIUM, TOTAL 9.2 mg/dL (8.8-10.5); CARBON DIOXIDE 25 mmol/L (22-29); CHLORIDE 106 mmol/L (98-107); CREATININE 0.81 mg/dL (0.60-1.30); GLUCOSE,RANDOM 187 mg/dL (70-110); POTASSIUM 3.8 mmol/L (3.5-5.1); SODIUM SERUM 139 mmol/L (136-145); UREA NITROGEN, BLOOD 15 mg/dL (7-18)
[2022-06-14 07:52] LABS: GLOMERULAR FILTR. RATE CALC > 60 mL/min (>60)
[2022-06-14 07:56] LABS: ALANINE AMINOTRANSFERASE 38 U/L (12-78); ALBUMIN 2.8 g/dL (3.4-5.0); ALKALINE PHOSPHATASE 177 U/L (46-116); ASPARTATE AMINOTRANSFERASE 22 U/L (15-37); BILIRUBIN,TOTAL 0.3 mg/dL (0.1-1.0); TOTAL PROTEIN, SERUM 7.4 g/dL (6.4-8.2)
[2022-06-14 08:20] VITALS: BP 142/80
[2022-06-14 08:21] LABS: GLUCOMETER DEV NAME(LOC) 5S.1B; GLUCOSE,POINT OF CARE 373 MG/DL (70-110)
[2022-06-14 08:21] LABS: GLUCOMETER DEV NAME(LOC) 5S.1B; GLUCOSE,POINT OF CARE 325 MG/DL (70-110)
[2022-06-14] MEDS: AmLODIPine BESYLATE 5 MG TABLET PO SCH (09:03)
[2022-06-14] MEDS: LOSARTAN POTASSIUM 25 MG TABLET PO SCH (09:03)
[2022-06-14] MEDS: ASPIRIN 81 MG CHEWABLE TABLET PO SCH (09:03)
[2022-06-14] MEDS: PANTOPRAZOLE SODIUM 40 MG DR TABLET PO SCH (09:04)
[2022-06-14] MEDS: DOCUSATE SODIUM 100 MG CAPSULE PO SCH ×2 (09:04→21:25)
[2022-06-14] MEDS: FAMOTIDINE 20 MG TABLET PO SCH (09:04)
[2022-06-14] MEDS: CINACALCET HCL 30 MG TABLET PO SCH (09:05)
[2022-06-14] MEDS: VANCOMYCIN HCL 750 MG in DEXTROSE 5%-WATER 250 ML IV SCH ×2 (09:06→21:31)
[2022-06-14] MEDS: LinaGLIPtin 5 MG TABLET PO SCH (09:07)
[2022-06-14] MEDS: NICOTINE 7 MG/24 HOUR PATCH TD SCH (09:07)
[2022-06-14] MEDS: QUEtiapine FUMARATE 200 MG TABLET PO SCH (09:07)
[2022-06-14] MEDS ORDERED: SODIUM CHLORIDE 0.9% 250 ML IV ONE (09:18)
[2022-06-14 11:40] VITALS: BP 138/82
[2022-06-14 16:14] VITALS: BP 131/69
[2022-06-14 20:00] VITALS: BP 145/86
[2022-06-14 21:11] LABS: GLUCOMETER DEV NAME(LOC) 5S.2B; GLUCOSE,POINT OF CARE 166 MG/DL (70-110)
[2022-06-14 21:11] LABS: GLUCOMETER DEV NAME(LOC) 5S.2B; GLUCOSE,POINT OF CARE 352 MG/DL (70-110)
[2022-06-14] MEDS: ATORVASTATIN CALCIUM 20 MG TABLET PO SCH (21:25)
[2022-06-14] MEDS: INSULIN GLARGINE,HUM.REC.ANLOG 100 UNITS/ML SQ SCH (21:27)
[2022-06-14] MEDS: DIVALPROEX SODIUM 500 MG ER TABLET PO SCH (21:31)
[2022-06-14 21:37] LABS: GLUCOMETER DEV NAME(LOC) 5S.2B; GLUCOSE,POINT OF CARE 256 MG/DL (70-110)
[2022-06-15 04:00] VITALS: BP 155/85
[2022-06-15] MEDS: GlipiZIDE 5 MG TABLET PO SCH (05:58)
[2022-06-15] MEDS: LEVOTHYROXINE SODIUM 150 MCG TABLET PO SCH (05:58)
[2022-06-15] MEDS: INSULIN LISPRO 100 UNITS/ML SQ PRN ×4 (05:59→20:17)
[2022-06-15 07:05] LABS: ANION GAP 6 mmol/L (8-16); CALCIUM, TOTAL 9.1 mg/dL (8.8-10.5); CARBON DIOXIDE 24 mmol/L (22-29); CHLORIDE 106 mmol/L (98-107); CREATININE 0.98 mg/dL (0.60-1.30); GLUCOSE,RANDOM 240 mg/dL (70-110); POTASSIUM 4.1 mmol/L (3.5-5.1); SODIUM SERUM 136 mmol/L (136-145); UREA NITROGEN, BLOOD 15 mg/dL (7-18); VANCOMYCIN,RANDOM 10.2 mcg/mL (25.0-50.0)
[2022-06-15 07:06] LABS: GLOMERULAR FILTR. RATE CALC > 60 mL/min (>60)
[2022-06-15 08:00] VITALS: BP 140/87
[2022-06-15] MEDS: PANTOPRAZOLE SODIUM 40 MG DR TABLET PO SCH (08:25)
[2022-06-15] MEDS: ASPIRIN 81 MG CHEWABLE TABLET PO SCH (08:26)
[2022-06-15] MEDS: AmLODIPine BESYLATE 5 MG TABLET PO SCH (08:27)
[2022-06-15] MEDS: DOCUSATE SODIUM 100 MG CAPSULE PO SCH ×2 (08:27→20:18)
[2022-06-15] MEDS: FAMOTIDINE 20 MG TABLET PO SCH (08:27)
[2022-06-15] MEDS: QUEtiapine FUMARATE 200 MG TABLET PO SCH (08:27)
[2022-06-15] MEDS: LOSARTAN POTASSIUM 25 MG TABLET PO SCH (08:27)
[2022-06-15] MEDS: LinaGLIPtin 5 MG TABLET PO SCH (08:28)
[2022-06-15] MEDS: NICOTINE 7 MG/24 HOUR PATCH TD SCH (08:28)
[2022-06-15] MEDS: CINACALCET HCL 30 MG TABLET PO SCH (08:29)
[2022-06-15] MEDS: HEPARIN SODIUM,PORCINE 5,000 UNITS/ML VIAL SQ SCH ×2 (08:29→16:18)
[2022-06-15] MEDS: VANCOMYCIN HCL 750 MG in DEXTROSE 5%-WATER 250 ML IV SCH ×2 (09:54→16:18)
[2022-06-15 12:00] VITALS: BP 135/82
[2022-06-15 15:56] VITALS: BP 148/82
[2022-06-15 18:26] LABS: GLUCOMETER DEV NAME(LOC) 5S.2B; GLUCOSE,POINT OF CARE 194 MG/DL (70-110)
[2022-06-15 20:06] LABS: GLUCOMETER DEV NAME(LOC) 5S.1B; GLUCOSE,POINT OF CARE 310 MG/DL (70-110)
[2022-06-15 20:09] VITALS: BP 132/71
[2022-06-15] MEDS: INSULIN GLARGINE,HUM.REC.ANLOG 100 UNITS/ML SQ SCH (20:16)
[2022-06-15] MEDS: DIVALPROEX SODIUM 500 MG ER TABLET PO SCH (20:18)
[2022-06-15] MEDS: ATORVASTATIN CALCIUM 20 MG TABLET PO SCH (20:18)
[2022-06-15 21:21] LABS: GLUCOMETER DEV NAME(LOC) 5S.1B; GLUCOSE,POINT OF CARE 284 MG/DL (70-110)
[2022-06-16] MEDS: HEPARIN SODIUM,PORCINE 5,000 UNITS/ML VIAL SQ SCH ×4 (00:03→23:35)
[2022-06-16] MEDS: VANCOMYCIN HCL 750 MG in DEXTROSE 5%-WATER 250 ML IV SCH ×4 (00:04→23:35)
[2022-06-16 00:46] VITALS: BP 147/75
[2022-06-16 04:02] VITALS: BP 135/78
[2022-06-16] MEDS: INSULIN LISPRO 100 UNITS/ML SQ PRN ×4 (05:48→20:26)
[2022-06-16] MEDS: LEVOTHYROXINE SODIUM 150 MCG TABLET PO SCH (05:49)
[2022-06-16] MEDS: GlipiZIDE 5 MG TABLET PO SCH (05:49)
[2022-06-16 06:32] LABS: GLUCOMETER DEV NAME(LOC) 5S.2B; GLUCOSE,POINT OF CARE 278 MG/DL (70-110)
[2022-06-16 07:43] VITALS: BP 136/78
[2022-06-16 07:50] LABS: ANION GAP 7 mmol/L (8-16); CALCIUM, TOTAL 8.9 mg/dL (8.8-10.5); CARBON DIOXIDE 24 mmol/L (22-29); CHLORIDE 106 mmol/L (98-107); CREATININE 0.88 mg/dL (0.60-1.30); GLUCOSE,RANDOM 225 mg/dL (70-110); POTASSIUM 3.9 mmol/L (3.5-5.1); SODIUM SERUM 137 mmol/L (136-145); UREA NITROGEN, BLOOD 14 mg/dL (7-18)
[2022-06-16 07:54] LABS: GLOMERULAR FILTR. RATE CALC > 60 mL/min (>60)
[2022-06-16] MEDS: DOCUSATE SODIUM 100 MG CAPSULE PO SCH ×2 (09:07→20:31)
[2022-06-16] MEDS: FAMOTIDINE 20 MG TABLET PO SCH (09:07)
[2022-06-16] MEDS: PANTOPRAZOLE SODIUM 40 MG DR TABLET PO SCH (09:07)
[2022-06-16] MEDS: LOSARTAN POTASSIUM 25 MG TABLET PO SCH (09:07)
[2022-06-16] MEDS: LinaGLIPtin 5 MG TABLET PO SCH (09:08)
[2022-06-16] MEDS: AmLODIPine BESYLATE 5 MG TABLET PO SCH (09:08)
[2022-06-16] MEDS: QUEtiapine FUMARATE 200 MG TABLET PO SCH (09:08)
[2022-06-16] MEDS: CINACALCET HCL 30 MG TABLET PO SCH (09:08)
[2022-06-16] MEDS: ASPIRIN 81 MG CHEWABLE TABLET PO SCH (09:09)
[2022-06-16] MEDS: NICOTINE 7 MG/24 HOUR PATCH TD SCH (09:09)
[2022-06-16 11:40] VITALS: BP 142/82
[2022-06-16 12:37] LABS: GLUCOMETER DEV NAME(LOC) 5S.2B; GLUCOSE,POINT OF CARE 232 MG/DL (70-110)
[2022-06-16 15:22] VITALS: BP 140/83
[2022-06-16 15:39] LABS: BASOPHILS % (AUTO) 2.9 % (0.0-2.0); EOSINOPHILS % (AUTO) 1.8 % (1.0-6.0); HEMATOCRIT 38.9 % (36-46); HEMOGLOBIN 13.3 g/dL (12.0-16.0); LYMPHOCYTES # (AUTO) 2.1 K/uL (1.0-4.8); LYMPHOCYTES % (AUTO) 36.7 % (22.0-44.0); MEAN CORPUSCULAR HGB CONC 34.1 G/dL (31.0-37.0); MEAN CORPUSCULAR VOLUME 94 fL (80-100); MONOCYTES # (AUTO) 0.6 K/uL (0.1-1.0); MONOCYTES % (AUTO) 10.8 % (2.0-9.0); NEUTROPHILS # (AUTO) 2.8 K/uL (1.8-7.7); NEUTROPHILS % (AUTO) 47.8 % (40.0-70.0); PLATELET COUNT (AUTO) 231 K/uL (150-450); RED BLOOD CELL COUNT(AUTO) 4.15 MIL/uL (4.00-5.20); RED CELL DISTRIBUTION WIDTH 15.5 % (11.5-14.5)
[2022-06-16 20:14] VITALS: BP 140/61
[2022-06-16] MEDS: INSULIN GLARGINE,HUM.REC.ANLOG 100 UNITS/ML SQ SCH (20:27)
[2022-06-16] MEDS: ATORVASTATIN CALCIUM 20 MG TABLET PO SCH (20:31)
[2022-06-16] MEDS: DIVALPROEX SODIUM 500 MG ER TABLET PO SCH (20:32)
[2022-06-16 20:46] LABS: GLUCOMETER DEV NAME(LOC) 5S.2B; GLUCOSE,POINT OF CARE 308 MG/DL (70-110)
[2022-06-17] VITALS (7 sets, daily range): BP systolic 128–148; BP diastolic 68–82
[2022-06-17 01:11] LABS: GLUCOMETER DEV NAME(LOC) 5N.1C; GLUCOSE,POINT OF CARE 288 MG/DL (70-110)
[2022-06-17] MEDS: LEVOTHYROXINE SODIUM 150 MCG TABLET PO SCH (06:41)
[2022-06-17] MEDS: GlipiZIDE 5 MG TABLET PO SCH (06:41)
[2022-06-17 07:08] LABS: ANION GAP 5 mmol/L (8-16); CARBON DIOXIDE 28 mmol/L (22-29); CHLORIDE 105 mmol/L (98-107); GLUCOSE,RANDOM 244 mg/dL (70-110); POTASSIUM 4.5 mmol/L (3.5-5.1); UREA NITROGEN, BLOOD 14 mg/dL (7-18); VANCOMYCIN,RANDOM 18.6 mcg/mL (25.0-50.0)
[2022-06-17 07:11] LABS: GLOMERULAR FILTR. RATE CALC > 60 mL/min (>60); SODIUM SERUM 138 mmol/L (136-145)
[2022-06-17 07:31] LABS: BASOPHILS % (AUTO) 0.7 % (0.0-2.0); EOSINOPHILS % (AUTO) 2.1 % (1.0-6.0); HEMATOCRIT 42.4 % (36-46); HEMOGLOBIN 14.2 g/dL (12.0-16.0); LYMPHOCYTES # (AUTO) 2.6 K/uL (1.0-4.8); LYMPHOCYTES % (AUTO) 47.3 % (22.0-44.0); MEAN CORPUSCULAR HEMOGLOBIN 31.9 pg (26.0-34.0); MEAN CORPUSCULAR HGB CONC 33.6 G/dL (31.0-37.0); MEAN CORPUSCULAR VOLUME 95 fL (80-100); MONOCYTES # (AUTO) 0.7 K/uL (0.1-1.0); MONOCYTES % (AUTO) 12.5 % (2.0-9.0); NEUTROPHILS % (AUTO) 37.4 % (40.0-70.0); PLATELET COUNT (AUTO) 226 K/uL (150-450); RED BLOOD CELL COUNT(AUTO) 4.46 MIL/uL (4.00-5.20); RED CELL DISTRIBUTION WIDTH 15.8 % (11.5-14.5)
[2022-06-17] MEDS: AmLODIPine BESYLATE 5 MG TABLET PO SCH (10:12)
[2022-06-17] MEDS: DOCUSATE SODIUM 100 MG CAPSULE PO SCH ×2 (10:12→20:09)
[2022-06-17] MEDS: QUEtiapine FUMARATE 200 MG TABLET PO SCH (10:12)
[2022-06-17] MEDS: HEPARIN SODIUM,PORCINE 5,000 UNITS/ML VIAL SQ SCH ×3 (10:12→23:21)
[2022-06-17] MEDS: LOSARTAN POTASSIUM 25 MG TABLET PO SCH (10:12)
[2022-06-17] MEDS: DIVALPROEX SODIUM 500 MG ER TABLET PO SCH (10:12)
[2022-06-17] MEDS: LinaGLIPtin 5 MG TABLET PO SCH (10:12)
[2022-06-17] MEDS: FAMOTIDINE 20 MG TABLET PO SCH (10:12)
[2022-06-17] MEDS: CINACALCET HCL 30 MG TABLET PO SCH (10:13)
[2022-06-17] MEDS: ASPIRIN 81 MG CHEWABLE TABLET PO SCH (10:13)
[2022-06-17] MEDS: PANTOPRAZOLE SODIUM 40 MG DR TABLET PO SCH (10:19)
[2022-06-17] MEDS: VANCOMYCIN HCL 750 MG in DEXTROSE 5%-WATER 250 ML IV SCH (11:06)
[2022-06-17] MEDS: INSULIN LISPRO 100 UNITS/ML SQ PRN ×3 (11:22→20:11)
[2022-06-17 11:31] LABS: GLUCOMETER DEV NAME(LOC) 5S.2B; GLUCOSE,POINT OF CARE 257 MG/DL (70-110)
[2022-06-17] MEDS: CEFEPIME HCL 2 GM in DEXTROSE 5%-WATER 50 ML IV SCH ×2 (16:49→23:21)
[2022-06-17] MEDS: NICOTINE 7 MG/24 HOUR PATCH TD SCH (17:19)
[2022-06-17] MEDS ORDERED: SODIUM CHLORIDE 0.9% 1,000 ML ONE (19:27)
[2022-06-17] MEDS: ATORVASTATIN CALCIUM 20 MG TABLET PO SCH (20:09)
[2022-06-17] MEDS: INSULIN GLARGINE,HUM.REC.ANLOG 100 UNITS/ML SQ SCH (20:12)
[2022-06-17] MEDS: ZOLPIDEM TARTRATE 5 MG TABLET PO PRN (22:04)
[2022-06-17] MEDS ORDERED: SODIUM CHLORIDE 0.9% 500 ML IV ONE (22:09)
[2022-06-17 22:56] LABS: GLUCOMETER DEV NAME(LOC) 5S.1B; GLUCOSE,POINT OF CARE 188 MG/DL (70-110)
[2022-06-18 00:26] LABS: GLUCOMETER DEV NAME(LOC) 6N.2B; GLUCOSE,POINT OF CARE 291 MG/DL (70-110)
[2022-06-18 04:53] VITALS: BP 140/75
[2022-06-18] MEDS: INSULIN LISPRO 100 UNITS/ML SQ PRN ×4 (05:47→20:32)
[2022-06-18] MEDS: LEVOTHYROXINE SODIUM 150 MCG TABLET PO SCH (05:52)
[2022-06-18] MEDS: GlipiZIDE 5 MG TABLET PO SCH (05:52)
[2022-06-18 07:24] LABS: ANION GAP 7 mmol/L (8-16); CALCIUM, TOTAL 9.5 mg/dL (8.8-10.5); CARBON DIOXIDE 26 mmol/L (22-29); CHLORIDE 106 mmol/L (98-107); CREATININE 0.83 mg/dL (0.60-1.30); GLUCOSE,RANDOM 223 mg/dL (70-110); POTASSIUM 4.2 mmol/L (3.5-5.1); UREA NITROGEN, BLOOD 15 mg/dL (7-18)
[2022-06-18 07:26] LABS: GLOMERULAR FILTR. RATE CALC > 60 mL/min (>60); SODIUM SERUM 139 mmol/L (136-145)
[2022-06-18 07:46] LABS: GLUCOMETER DEV NAME(LOC) 6N.1; GLUCOSE,POINT OF CARE 221 MG/DL (70-110)
[2022-06-18 08:14] VITALS: BP 154/79
[2022-06-18] MEDS: HEPARIN SODIUM,PORCINE 5,000 UNITS/ML VIAL SQ SCH ×3 (08:48→23:19)
[2022-06-18] MEDS: LOSARTAN POTASSIUM 25 MG TABLET PO SCH (08:49)
[2022-06-18] MEDS: ASPIRIN 81 MG CHEWABLE TABLET PO SCH (08:49)
[2022-06-18] MEDS: PANTOPRAZOLE SODIUM 40 MG DR TABLET PO SCH (08:49)
[2022-06-18] MEDS: DOCUSATE SODIUM 100 MG CAPSULE PO SCH ×2 (08:49→20:31)
[2022-06-18] MEDS: AmLODIPine BESYLATE 5 MG TABLET PO SCH (08:49)
[2022-06-18] MEDS: FAMOTIDINE 20 MG TABLET PO SCH (08:49)
[2022-06-18] MEDS: LinaGLIPtin 5 MG TABLET PO SCH (08:50)
[2022-06-18] MEDS: NICOTINE 7 MG/24 HOUR PATCH TD SCH (08:50)
[2022-06-18] MEDS: QUEtiapine FUMARATE 200 MG TABLET PO SCH (08:50)
[2022-06-18] MEDS: CINACALCET HCL 30 MG TABLET PO SCH (08:51)
[2022-06-18] MEDS: CEFEPIME HCL 2 GM in DEXTROSE 5%-WATER 50 ML IV SCH ×3 (09:49→23:19)
[2022-06-18 12:36] LABS: GLUCOMETER DEV NAME(LOC) 6N.1; GLUCOSE,POINT OF CARE 238 MG/DL (70-110)
[2022-06-18 16:00] VITALS: BP 163/91
[2022-06-18] MEDS: ATORVASTATIN CALCIUM 20 MG TABLET PO SCH (20:25)
[2022-06-18] MEDS: DIVALPROEX SODIUM 500 MG ER TABLET PO SCH (20:30)
[2022-06-18] MEDS: INSULIN GLARGINE,HUM.REC.ANLOG 100 UNITS/ML SQ SCH (20:32)
[2022-06-18 20:39] VITALS: BP 158/88
[2022-06-18] MEDS: ZOLPIDEM TARTRATE 5 MG TABLET PO PRN (23:24)
[2022-06-19 00:57] LABS: GLUCOMETER DEV NAME(LOC) 6N.1; GLUCOSE,POINT OF CARE 214 MG/DL (70-110)
[2022-06-19 00:57] LABS: GLUCOMETER DEV NAME(LOC) 6N.1; GLUCOSE,POINT OF CARE 198 MG/DL (70-110)
[2022-06-19 05:43] VITALS: BP 129/68
[2022-06-19] MEDS: GlipiZIDE 5 MG TABLET PO SCH (05:51)
[2022-06-19] MEDS: LEVOTHYROXINE SODIUM 150 MCG TABLET PO SCH (05:51)
[2022-06-19] MEDS: INSULIN LISPRO 100 UNITS/ML SQ PRN ×4 (05:56→20:21)
[2022-06-19 06:47] LABS: GLUCOMETER DEV NAME(LOC) 6N.1; GLUCOSE,POINT OF CARE 279 MG/DL (70-110)
[2022-06-19 07:00] LABS: ANION GAP 5 mmol/L (8-16); CALCIUM, TOTAL 9.5 mg/dL (8.8-10.5); CARBON DIOXIDE 28 mmol/L (22-29); CHLORIDE 105 mmol/L (98-107); GLUCOSE,RANDOM 308 mg/dL (70-110); POTASSIUM 4.3 mmol/L (3.5-5.1); SODIUM SERUM 138 mmol/L (136-145); UREA NITROGEN, BLOOD 14 mg/dL (7-18)
[2022-06-19 07:01] LABS: GLOMERULAR FILTR. RATE CALC > 60 mL/min (>60)
[2022-06-19] MEDS: ASPIRIN 81 MG CHEWABLE TABLET PO SCH (09:12)
[2022-06-19] MEDS: AmLODIPine BESYLATE 5 MG TABLET PO SCH (09:12)
[2022-06-19] MEDS: HEPARIN SODIUM,PORCINE 5,000 UNITS/ML VIAL SQ SCH ×3 (09:12→23:07)
[2022-06-19] MEDS: CEFEPIME HCL 2 GM in DEXTROSE 5%-WATER 50 ML IV SCH ×3 (09:12→23:08)
[2022-06-19] MEDS: LOSARTAN POTASSIUM 25 MG TABLET PO SCH (09:12)
[2022-06-19] MEDS: PANTOPRAZOLE SODIUM 40 MG DR TABLET PO SCH (09:13)
[2022-06-19] MEDS: FAMOTIDINE 20 MG TABLET PO SCH (09:13)
[2022-06-19] MEDS: CINACALCET HCL 30 MG TABLET PO SCH (09:22)
[2022-06-19] MEDS: NICOTINE 7 MG/24 HOUR PATCH TD SCH (09:22)
[2022-06-19] MEDS: LinaGLIPtin 5 MG TABLET PO SCH (09:23)
[2022-06-19] MEDS: QUEtiapine FUMARATE 200 MG TABLET PO SCH (09:23)
[2022-06-19] MEDS: DOCUSATE SODIUM 100 MG CAPSULE PO SCH ×2 (09:23→20:18)
[2022-06-19 09:39] VITALS: BP 130/72
[2022-06-19] MEDS ORDERED: SODIUM CL IRRIG SOLN BOTTLE 250 ML IRRIG ONE (14:15)
[2022-06-19 15:36] LABS: GLUCOMETER DEV NAME(LOC) 6N.2B; GLUCOSE,POINT OF CARE 205 MG/DL (70-110)
[2022-06-19 16:08] VITALS: BP 141/76
[2022-06-19 20:02] VITALS: BP 131/58
[2022-06-19] MEDS: DIVALPROEX SODIUM 500 MG ER TABLET PO SCH (20:18)
[2022-06-19] MEDS: ATORVASTATIN CALCIUM 20 MG TABLET PO SCH (20:18)
[2022-06-19] MEDS: INSULIN GLARGINE,HUM.REC.ANLOG 100 UNITS/ML SQ SCH (20:21)
[2022-06-19 22:02] LABS: GLUCOMETER DEV NAME(LOC) 6N.1; GLUCOSE,POINT OF CARE 263 MG/DL (70-110)
[2022-06-19 22:02] LABS: GLUCOMETER DEV NAME(LOC) 6N.1; GLUCOSE,POINT OF CARE 250 MG/DL (70-110)
[2022-06-19] MEDS: ZOLPIDEM TARTRATE 5 MG TABLET PO PRN (23:08)
[2022-06-20 04:32] VITALS: BP 123/58
[2022-06-20] MEDS: LEVOTHYROXINE SODIUM 150 MCG TABLET PO SCH (05:47)
[2022-06-20] MEDS: GlipiZIDE 5 MG TABLET PO SCH (05:47)
[2022-06-20] MEDS: INSULIN LISPRO 100 UNITS/ML SQ PRN ×3 (05:50→17:30)
[2022-06-20 06:46] LABS: GLUCOMETER DEV NAME(LOC) 6N.2B; GLUCOSE,POINT OF CARE 288 MG/DL (70-110)
[2022-06-20] MEDS: NICOTINE 7 MG/24 HOUR PATCH TD SCH (08:34)
[2022-06-20] MEDS: CEFEPIME HCL 2 GM in DEXTROSE 5%-WATER 50 ML IV SCH ×2 (08:34→16:16)
[2022-06-20] MEDS: ASPIRIN 81 MG CHEWABLE TABLET PO SCH (08:35)
[2022-06-20] MEDS: PANTOPRAZOLE SODIUM 40 MG DR TABLET PO SCH (08:35)
[2022-06-20] MEDS: QUEtiapine FUMARATE 200 MG TABLET PO SCH (08:35)
[2022-06-20] MEDS: LOSARTAN POTASSIUM 25 MG TABLET PO SCH (08:35)
[2022-06-20] MEDS: AmLODIPine BESYLATE 5 MG TABLET PO SCH (08:35)
[2022-06-20] MEDS: CINACALCET HCL 30 MG TABLET PO SCH (08:35)
[2022-06-20] MEDS: DOCUSATE SODIUM 100 MG CAPSULE PO SCH (08:36)
[2022-06-20] MEDS: HEPARIN SODIUM,PORCINE 5,000 UNITS/ML VIAL SQ SCH ×2 (08:36→16:16)
[2022-06-20] MEDS: FAMOTIDINE 20 MG TABLET PO SCH (08:36)
[2022-06-20] MEDS: LinaGLIPtin 5 MG TABLET PO SCH (08:36)
[2022-06-20 08:38] VITALS: BP 133/65
[2022-06-20] MEDS ORDERED: LEVOFLOXACIN 750 MG TABLET PO SCH (14:45)
[2022-06-20 15:30] VITALS: BP 141/69
[2022-06-20 16:41] LABS: GLUCOMETER DEV NAME(LOC) 6N.1; GLUCOSE,POINT OF CARE 220 MG/DL (70-110)
[2022-06-20 19:36] LABS: GLUCOMETER DEV NAME(LOC) 6N.2B; GLUCOSE,POINT OF CARE 233 MG/DL (70-110)
[2022-06-20] MEDS ORDERED: INSULIN GLARGINE,HUM.REC.ANLOG 100 UNITS/ML SQ SCH (21:00)
== END 2022-06-20 20:15 | DRG 638 ==
LOC: EMS 12:40 → 5S 21:00 → UNDOADMIN 21:00 → 6S 06-17 18:40 → 6N 06-17 20:06
PROVIDERS: ADMIT Internal Medicine; ATTEND Internal Medicine
PROC: 05HY33Z Insertion of Infusion Device into Upper Vein, Percutaneous Approach (ICD-10-PCS; principal; 2022-06-20)
DX: E11.69 Type 2 diabetes mellitus with other specified complication (principal); E44.0 Moderate protein-calorie malnutrition; M86.172 Other acute osteomyelitis, left ankle and foot; E11.621 Type 2 diabetes mellitus with foot ulcer; Z20.822 Contact with and (suspected) exposure to COVID-19; B96.5 Pseudomonas (aeruginosa) (mallei) (pseudomallei) as the cause of diseases classified elsewhere; L97.529 Non-pressure chronic ulcer of other part of left foot with unspecified severity; E11.65 Type 2 diabetes mellitus with hyperglycemia; I10 Essential (primary) hypertension; E78.5 Hyperlipidemia, unspecified; E03.9 Hypothyroidism, unspecified; F31.9 Bipolar disorder, unspecified; E11.51 Type 2 diabetes mellitus with diabetic peripheral angiopathy without gangrene; F20.9 Schizophrenia, unspecified; E11.40 Type 2 diabetes mellitus with diabetic neuropathy, unspecified; E78.00 Pure hypercholesterolemia, unspecified; Z91.018 Allergy to other foods; Z68.22 Body mass index [BMI] 22.0-22.9, adult
CPT/HCPCS: 36245; 36569; 73718; 76937; 80048; 80053; 80202; 82962; 83605; 85025; 85610; 85730; 87040; 87070; 87186; 87205; 93005; 99285; G0378; J0692; J0696; J1644; J1815; J3370; J7030; J7040; J7050; J7060; Q9967

== ENCOUNTER 2022-12-31 12:53 | Inpatient (IN) | payer MEDICARE, OTHER ==
[~2022-12-31] VITALS: Ht 165.1 cm; Wt 69.3 kg
[~2022-12-31 12:53] MED LIST changes: -CEPH-558 PO; -CLIN300C58 PO; -DIVA-80 PO; +DIVA500T53 PO; -FISH1 PO
[2022-12-31] MEDS ORDERED: SODIUM CHLORIDE 0.9% 100 ML ONE (13:05)
[2022-12-31] MEDS ORDERED: IOHEXOL 350 MG/ML 100 ML VIAL ONE (13:05)
[2022-12-31] MEDS ORDERED: LABETALOL HCL 5 MG/ML 20 ML VIAL IVP PRN ×2 (13:15)
[2022-12-31] MEDS ORDERED: PIPERACILLIN/TAZO 3.375 GM/D5W 50 ML IV ONE (13:30)
[2022-12-31 13:33] LABS: BASOPHILS % (AUTO) 0.3 % (0.0-2.0); EOSINOPHILS % (AUTO) 0.1 % (1.0-6.0); HEMATOCRIT 38.1 % (36-46); HEMOGLOBIN 12.4 g/dL (12.0-16.0); LYMPHOCYTES # (AUTO) 1.1 K/uL (1.0-4.8); LYMPHOCYTES % (AUTO) 11.1 % (22.0-44.0); MEAN CORPUSCULAR HEMOGLOBIN 31.9 pg (26.0-34.0); MEAN CORPUSCULAR HGB CONC 32.6 G/dL (31.0-37.0); MEAN CORPUSCULAR VOLUME 98 fL (80-100); MONOCYTES # (AUTO) 0.9 K/uL (0.1-1.0); MONOCYTES % (AUTO) 9.8 % (2.0-9.0); NEUTROPHILS # (AUTO) 7.6 K/uL (1.8-7.7); NEUTROPHILS % (AUTO) 78.7 % (40.0-70.0); PLATELET COUNT (AUTO) 209 K/uL (150-450); RED BLOOD CELL COUNT(AUTO) 3.89 MIL/uL (4.00-5.20); RED CELL DISTRIBUTION WIDTH 13.9 % (11.5-14.5)
[2022-12-31] MEDS ORDERED: SODIUM CHLORIDE 0.9% 1,950 ML IV ONE (13:45)
[2022-12-31 13:56] LABS: PROTHROMBIN TIME 10.8 SEC (9.4-11.6)
[2022-12-31 14:08] LABS: ALBUMIN 2.4 g/dL (3.4-5.0); CALCIUM, TOTAL 10.6 mg/dL (8.8-10.5); CREATININE 1.17 mg/dL (0.60-1.30); POTASSIUM 5.1 mmol/L (3.5-5.1); TOTAL PROTEIN, SERUM 8.4 g/dL (6.4-8.2)
[2022-12-31 14:52] LABS: APPEARANCE,URINE TURBID (CLEAR); BILIRUBIN,URINE NEGATIVE (NEGATIVE); GLUCOSE, URINE (UA) NEGATIVE (NEGATIVE); KETONES,URINE NEGATIVE (NEGATIVE); LEUKOCYTE ESTERASE ,URINE LARGE (NEGATIVE); NITRATE,URINE NEGATIVE (NEGATIVE); OCCULT BLOOD,URINE SMALL (NEGATIVE); PROTEIN,URINE 30-70 mg/dL (NEGATIVE); SPECIFIC GRAVITIY, URINE 1.036 (1.003-1.030); UROBILINOGEN,URINE <=1.0 mg/dL (<=1.0)
[2022-12-31 14:57] LABS: BILIRUBIN,TOTAL 0.1 mg/dL (0.1-1.0)
[2022-12-31 15:06] LABS: AMPHET/METH SCREEN,URINE NEGATIVE (NEGATIVE); BARBITURATE SCREEN, URINE NEGATIVE (NEGATIVE); BENZODIAZEPINES SCREEN,URINE NEGATIVE (NEGATIVE); CANNABINOID SCREEN,URINE NEGATIVE (NEGATIVE); COCAINE SCREEN,URINE NEGATIVE (NEGATIVE); METHADONE SCREEN, URINE NEGATIVE (NEGATIVE); OPIATE SCREEN,URINE NEGATIVE (NEGATIVE); PHENCYCLIDINE SCREEN,URINE NEGATIVE (NEGATIVE)
[2022-12-31 15:09] LABS: BACTERIA,URINE Many /HPF (None Seen); WBC,URINE >100 /HPF (0-5)
[2022-12-31] MEDS ORDERED: ACETAMINOPHEN 1000 MG/ISO-OSM 100 ML IV ONE (15:15)
[2022-12-31] MEDS ORDERED: DEXTROSE 50%-WATER 25 GM/50 ML SYRINGE IVP PRN (16:30)
[2022-12-31] MEDS ORDERED: ACETAMINOPHEN 325 MG TABLET PO PRN (16:30)
[2022-12-31] MEDS ORDERED: BISACODYL 10 MG RECTAL RECTAL SUPPOSITORY PR PRN (16:30)
[2022-12-31] MEDS ORDERED: ONDANSETRON HCL 4 MG/2 ML VIAL IVP PRN (16:30)
[2022-12-31] MEDS: SODIUM CHLORIDE 0.45% 1,000 ML IV SCH (16:35)
[2022-12-31 17:44] LABS: THYROID STIMULATING HORMONE 0.26 uIU/mL (0.36-3.74)
[2022-12-31] MEDS: PIPERACILLIN/TAZO 3.375 GM/D5W 50 ML IV SCH (19:29)
[2022-12-31 21:00] VITALS: BP 132/87; PULSE 139; RESP 24; TEMP 100.7
[2022-12-31] MEDS: ACETAMINOPHEN 650 MG RECTAL SUPPOSITORY PR PRN (21:32)
[2022-12-31 23:11] LABS: GLUCOMETER DEV NAME(LOC) 5N.2C
[2022-12-31] MEDS ORDERED: KETOROLAC TROMETHAMINE 15 MG/ML VIAL IVP ONE (23:15)
[2022-12-31] MEDS ORDERED: LEVOFLOXACIN 750 MG/D5% WATER 150 ML IV ONE (23:30)
[2022-12-31 23:55] VITALS: BP 107/62; PULSE 112; RESP 20; TEMP 100.7
[2023-01-01] MEDS: HEPARIN SODIUM,PORCINE 5,000 UNITS/ML VIAL SQ SCH ×4 (00:06→23:53)
[2023-01-01] MEDS: SODIUM CHLORIDE 0.45% 1,000 ML IV SCH ×4 (00:06→19:56)
[2023-01-01] MEDS: PIPERACILLIN/TAZO 3.375 GM/D5W 50 ML IV SCH ×4 (01:38→19:56)
[2023-01-01] MEDS ORDERED: *CLINICAL-LEVOFLOXACIN IVPB DOSING CLINICAL ONE (03:30)
[2023-01-01 04:07] VITALS: BP 111/63; PULSE 80; RESP 20; TEMP 99.1
[2023-01-01 05:10] LABS: APPEARANCE,URINE CLEAR (CLEAR); BILIRUBIN,URINE NEGATIVE (NEGATIVE); GLUCOSE, URINE (UA) NEGATIVE (NEGATIVE); KETONES,URINE NEGATIVE (NEGATIVE); LEUKOCYTE ESTERASE ,URINE LARGE (NEGATIVE); NITRATE,URINE NEGATIVE (NEGATIVE); OCCULT BLOOD,URINE TRACE (NEGATIVE); PH,URINE 5.5 (5.0-8.0); PROTEIN,URINE NEGATIVE (NEGATIVE); SPECIFIC GRAVITIY, URINE 1.022 (1.003-1.030); UROBILINOGEN,URINE <=1.0 mg/dL (<=1.0)
[2023-01-01 05:25] LABS: BACTERIA,URINE Few /HPF (None Seen); RBC,URINE 0-2 /HPF (0-2); SQUAMOUS EPITHELIAL CELL,UR None Seen /LPF (None Seen); WBC,URINE 26-50 /HPF (0-5)
[2023-01-01 07:14] LABS: BASOPHILS % (AUTO) 0.1 % (0.0-2.0); EOSINOPHILS % (AUTO) 0.1 % (1.0-6.0); HEMOGLOBIN 10.4 g/dL (12.0-16.0); LYMPHOCYTES # (AUTO) 2.1 K/uL (1.0-4.8); MEAN CORPUSCULAR HEMOGLOBIN 32.9 pg (26.0-34.0); MEAN CORPUSCULAR HGB CONC 33.6 G/dL (31.0-37.0); MEAN CORPUSCULAR VOLUME 98 fL (80-100); MONOCYTES # (AUTO) 1.7 K/uL (0.1-1.0); MONOCYTES % (AUTO) 13.1 % (2.0-9.0); NEUTROPHILS # (AUTO) 9.1 K/uL (1.8-7.7); NEUTROPHILS % (AUTO) 70.7 % (40.0-70.0); PLATELET COUNT (AUTO) 162 K/uL (150-450); RED BLOOD CELL COUNT(AUTO) 3.16 MIL/uL (4.00-5.20); RED CELL DISTRIBUTION WIDTH 13.8 % (11.5-14.5)
[2023-01-01 07:35] VITALS: BP 122/64; PULSE 80; RESP 18; TEMP 98.7
[2023-01-01 07:39] LABS: ANION GAP 11 mmol/L (8-16); CALCIUM, TOTAL 9.6 mg/dL (8.8-10.5); CARBON DIOXIDE 22 mmol/L (22-29); CHLORIDE 107 mmol/L (98-107); CREATININE 1.09 mg/dL (0.60-1.30); GLOMERULAR FILTR. RATE CALC > 60 mL/min (>60); GLUCOSE,RANDOM 85 mg/dL (70-110); POTASSIUM 4.8 mmol/L (3.5-5.1); SODIUM SERUM 140 mmol/L (136-145)
[2023-01-01] MEDS: PANTOPRAZOLE SODIUM 40 MG/VIAL IVP SCH (07:44)
[2023-01-01] MEDS: INSULIN LISPRO 100 UNITS/ML SQ PRN ×2 (11:23→20:29)
[2023-01-01 11:29] LABS: GLUCOMETER DEV NAME(LOC) 5S.2C
[2023-01-01 11:48] VITALS: BP 136/75; PULSE 87; RESP 18; TEMP 97.9
[2023-01-01 11:58] LABS: GLUCOMETER DEV NAME(LOC) 5N.2C
[2023-01-01 16:04] VITALS: BP 140/70; PULSE 86; RESP 18; TEMP 98.9
[2023-01-01 17:48] LABS: GLUCOMETER DEV NAME(LOC) 5N.1C
[2023-01-01 19:55] VITALS: BP 143/76; PULSE 118; RESP 19; TEMP 100.1
[2023-01-01] MEDS: ACETAMINOPHEN 650 MG RECTAL SUPPOSITORY PR PRN (19:58)
[2023-01-01] MEDS ORDERED: LEVOFLOXACIN 500 MG/D5% WATER 100 ML IV SCH (21:00)
[2023-01-01] MEDS ORDERED: LEVOFLOXACIN 750 MG/D5% WATER 150 ML IV SCH (23:00)
[2023-01-01 23:42] LABS: GLUCOMETER DEV NAME(LOC) 5N.1C
[2023-01-02] VITALS (7 sets, daily range): BP systolic 122–150; BP diastolic 51–80; PULSE 77–92; RESP 16–19; TEMP 98.1–99.6
[2023-01-02] MEDS ORDERED: MELATONIN 5 MG TABLET PO PRN (00:15)
[2023-01-02] MEDS: PIPERACILLIN/TAZO 3.375 GM/D5W 50 ML IV SCH ×4 (01:02→19:21)
[2023-01-02] MEDS: SODIUM CHLORIDE 0.45% 1,000 ML IV SCH ×2 (05:34→16:16)
[2023-01-02 06:17] LABS: CALCIUM, TOTAL 9.2 mg/dL (8.8-10.5); CREATININE 1.3 mg/dL (0.60-1.30); POTASSIUM 4.6 mmol/L (3.5-5.1)
[2023-01-02] MEDS: HEPARIN SODIUM,PORCINE 5,000 UNITS/ML VIAL SQ SCH ×3 (09:17→23:18)
[2023-01-02] MEDS: PANTOPRAZOLE SODIUM 40 MG/VIAL IVP SCH (09:17)
[2023-01-02] MEDS: INSULIN LISPRO 100 UNITS/ML SQ PRN ×3 (11:49→20:10)
[2023-01-02] MEDS ORDERED: SODIUM CHLORIDE 0.9% 0 ML ONE (16:14)
[2023-01-02 17:49] LABS: GLUCOMETER DEV NAME(LOC) 5N.1C
[2023-01-02 21:22] LABS: GLUCOMETER DEV NAME(LOC) 5S.1B
[2023-01-03 00:08] LABS: GLUCOMETER DEV NAME(LOC) 5S.2C
[2023-01-03 00:08] LABS: GLUCOMETER DEV NAME(LOC) 5S.2C
[2023-01-03] MEDS: SODIUM CHLORIDE 0.45% 1,000 ML IV SCH ×4 (01:26→23:36)
[2023-01-03] MEDS: PIPERACILLIN/TAZO 3.375 GM/D5W 50 ML IV SCH ×4 (01:26→20:25)
[2023-01-03 04:37] VITALS: BP 122/70; PULSE 92; RESP 18; TEMP 98.6
[2023-01-03 05:59] LABS: ANION GAP 9 mmol/L (8-16); CALCIUM, TOTAL 9.2 mg/dL (8.8-10.5); CARBON DIOXIDE 23 mmol/L (22-29); CHLORIDE 107 mmol/L (98-107); CREATININE 0.99 mg/dL (0.60-1.30); GLOMERULAR FILTR. RATE CALC > 60 mL/min (>60); GLUCOSE,RANDOM 135 mg/dL (70-110); POTASSIUM 3.9 mmol/L (3.5-5.1); SODIUM SERUM 139 mmol/L (136-145)
[2023-01-03 07:11] VITALS: BP 149/72; PULSE 81; RESP 18; TEMP 98.4
[2023-01-03] MEDS: PANTOPRAZOLE SODIUM 40 MG/VIAL IVP SCH (08:30)
[2023-01-03] MEDS: HEPARIN SODIUM,PORCINE 5,000 UNITS/ML VIAL SQ SCH ×3 (08:30→23:35)
[2023-01-03 11:15] VITALS: BP 151/76; PULSE 79; RESP 18; TEMP 98
[2023-01-03] MEDS: INSULIN LISPRO 100 UNITS/ML SQ PRN ×3 (11:57→20:13)
[2023-01-03 15:18] VITALS: BP 139/66; PULSE 74; RESP 18; TEMP 98.2
[2023-01-03 17:28] LABS: GLUCOMETER DEV NAME(LOC) 5S.1B
[2023-01-03 19:50] VITALS: BP 142/67; PULSE 83; RESP 19; TEMP 98.6
[2023-01-03 20:27] LABS: GLUCOMETER DEV NAME(LOC) 5N.2C
[2023-01-03 20:27] LABS: GLUCOMETER DEV NAME(LOC) 5N.2C
[2023-01-04] VITALS (7 sets, daily range): BP systolic 139–159; BP diastolic 56–87; PULSE 66–82; RESP 18–20; TEMP 97.9–98.6
[2023-01-04] MEDS: PIPERACILLIN/TAZO 3.375 GM/D5W 50 ML IV SCH ×4 (01:53→19:50)
[2023-01-04 06:10] LABS: ANION GAP 8 mmol/L (8-16); CALCIUM, TOTAL 9.4 mg/dL (8.8-10.5); CARBON DIOXIDE 22 mmol/L (22-29); CHLORIDE 104 mmol/L (98-107); CREATININE 0.95 mg/dL (0.60-1.30); GLOMERULAR FILTR. RATE CALC > 60 mL/min (>60); GLUCOSE,RANDOM 218 mg/dL (70-110); POTASSIUM 3.9 mmol/L (3.5-5.1); SODIUM SERUM 134 mmol/L (136-145)
[2023-01-04] MEDS: INSULIN LISPRO 100 UNITS/ML SQ PRN ×4 (06:43→20:47)
[2023-01-04 07:37] LABS: GLUCOMETER DEV NAME(LOC) 5S.2C
[2023-01-04 07:58] LABS: GLUCOMETER DEV NAME(LOC) 5N.1C
[2023-01-04] MEDS: HEPARIN SODIUM,PORCINE 5,000 UNITS/ML VIAL SQ SCH ×2 (09:00→16:17)
[2023-01-04] MEDS: PANTOPRAZOLE SODIUM 40 MG/VIAL IVP SCH (09:01)
[2023-01-04] MEDS: SODIUM CHLORIDE 0.45% 1,000 ML IV SCH ×2 (11:23→17:59)
[2023-01-04 17:03] LABS: GLUCOMETER DEV NAME(LOC) 5N.1C
[2023-01-04 18:13] LABS: GLUCOMETER DEV NAME(LOC) 5S.1B
[2023-01-04 21:18] LABS: GLUCOMETER DEV NAME(LOC) 5S.1B
[2023-01-05] MEDS: HEPARIN SODIUM,PORCINE 5,000 UNITS/ML VIAL SQ SCH ×3 (00:26→16:31)
[2023-01-05] MEDS: SODIUM CHLORIDE 0.45% 1,000 ML IV SCH ×3 (01:04→16:33)
[2023-01-05] MEDS: PIPERACILLIN/TAZO 3.375 GM/D5W 50 ML IV SCH ×4 (02:48→21:37)
[2023-01-05 05:31] VITALS: BP 161/75; PULSE 72; RESP 18; TEMP 98.4
[2023-01-05] MEDS: INSULIN LISPRO 100 UNITS/ML SQ PRN ×4 (06:25→21:04)
[2023-01-05 07:24] LABS: ANION GAP 6 mmol/L (8-16); CARBON DIOXIDE 25 mmol/L (22-29); CHLORIDE 105 mmol/L (98-107); CREATININE 0.99 mg/dL (0.60-1.30); GLOMERULAR FILTR. RATE CALC > 60 mL/min (>60); GLUCOSE,RANDOM 276 mg/dL (70-110); POTASSIUM 4.1 mmol/L (3.5-5.1); SODIUM SERUM 136 mmol/L (136-145)
[2023-01-05 07:25] LABS: CALCIUM, TOTAL 9.4 mg/dL (8.8-10.5)
[2023-01-05 07:36] VITALS: BP 158/68; PULSE 75; RESP 17; TEMP 97.4
[2023-01-05] MEDS: PANTOPRAZOLE SODIUM 40 MG/VIAL IVP SCH (07:57)
[2023-01-05 11:20] VITALS: BP 159/74; PULSE 72; RESP 18; TEMP 97.5
[2023-01-05] MEDS: HydrALAZINE HCL 10 MG TABLET PO SCH ×2 (14:48→19:07)
[2023-01-05 15:23] VITALS: BP 145/88; PULSE 80; RESP 17; TEMP 97.5
[2023-01-05 16:07] LABS: GLUCOMETER DEV NAME(LOC) 5N.1C
[2023-01-05 17:08] LABS: GLUCOMETER DEV NAME(LOC) 5S.2C
[2023-01-05] MEDS ORDERED: DIVA500T53 PO (19:32)
[2023-01-05] MEDS ORDERED: HEPA500018 SQ (19:32)
[2023-01-05 19:50] VITALS: BP 177/73; PULSE 65; RESP 18; TEMP 97.5
[2023-01-05 20:28] LABS: BASOPHILS % (AUTO) 0.3 % (0.0-2.0); EOSINOPHILS % (AUTO) 1.3 % (1.0-6.0); HEMOGLOBIN 10.4 g/dL (12.0-16.0); LYMPHOCYTES # (AUTO) 2.6 K/uL (1.0-4.8); LYMPHOCYTES % (AUTO) 27.8 % (22.0-44.0); MEAN CORPUSCULAR HEMOGLOBIN 32.5 pg (26.0-34.0); MEAN CORPUSCULAR HGB CONC 33.5 G/dL (31.0-37.0); MEAN CORPUSCULAR VOLUME 97 fL (80-100); MONOCYTES # (AUTO) 1.4 K/uL (0.1-1.0); MONOCYTES % (AUTO) 14.4 % (2.0-9.0); NEUTROPHILS # (AUTO) 5.3 K/uL (1.8-7.7); NEUTROPHILS % (AUTO) 56.2 % (40.0-70.0); PLATELET COUNT (AUTO) 349 K/uL (150-450); RED BLOOD CELL COUNT(AUTO) 3.19 MIL/uL (4.00-5.20)
[2023-01-05 20:47] LABS: ANION GAP 3 mmol/L (8-16); CALCIUM, TOTAL 9.7 mg/dL (8.8-10.5); CARBON DIOXIDE 27 mmol/L (22-29); CHLORIDE 104 mmol/L (98-107); CREATININE 0.91 mg/dL (0.60-1.30); GLOMERULAR FILTR. RATE CALC > 60 mL/min (>60); GLUCOSE,RANDOM 212 mg/dL (70-110); POTASSIUM 3.9 mmol/L (3.5-5.1); SODIUM SERUM 134 mmol/L (136-145)
[2023-01-05 20:53] LABS: ALANINE AMINOTRANSFERASE 40 U/L (12-78); ALBUMIN 1.8 g/dL (3.4-5.0); ALKALINE PHOSPHATASE 91 U/L (46-116); ASPARTATE AMINOTRANSFERASE 34 U/L (15-37); BILIRUBIN,TOTAL 0.1 mg/dL (0.1-1.0); TOTAL PROTEIN, SERUM 7.5 g/dL (6.4-8.2)
[2023-01-05] MEDS ORDERED: DIVALPROEX SODIUM 500 MG ER TABLET PO SCH (21:00)
[2023-01-05] MEDS ORDERED: QUEtiapine FUMARATE 200 MG TABLET PO SCH (21:00)
[2023-01-05] MEDS ORDERED: ATORVASTATIN CALCIUM 20 MG TABLET PO SCH (21:00)
[2023-01-05 22:18] LABS: GLUCOMETER DEV NAME(LOC) 5N.2C
[2023-01-05 23:52] LABS: GLUCOMETER DEV NAME(LOC) 5S.1B
[2023-01-06 00:46] VITALS: BP 169/79; PULSE 81; RESP 18; TEMP 97
[2023-01-06] MEDS: HydrALAZINE HCL 10 MG TABLET PO SCH ×4 (00:58→11:56)
[2023-01-06] MEDS: HEPARIN SODIUM,PORCINE 5,000 UNITS/ML VIAL SQ SCH ×3 (00:59→17:12)
[2023-01-06] MEDS: SODIUM CHLORIDE 0.45% 1,000 ML IV SCH ×2 (01:00→11:59)
[2023-01-06] MEDS: PIPERACILLIN/TAZO 3.375 GM/D5W 50 ML IV SCH ×3 (03:32→14:45)
[2023-01-06 04:30] VITALS: BP 157/84; PULSE 89; RESP 24; TEMP 97.7
[2023-01-06] MEDS: INSULIN LISPRO 100 UNITS/ML SQ PRN ×2 (06:25→12:02)
[2023-01-06] MEDS ORDERED: LEVOTHYROXINE SODIUM 150 MCG TABLET PO SCH (06:30)
[2023-01-06 06:32] LABS: GLUCOMETER DEV NAME(LOC) 5N.1C
[2023-01-06 06:43] LABS: BASOPHILS % (AUTO) 0.5 % (0.0-2.0); EOSINOPHILS % (AUTO) 2.5 % (1.0-6.0); HEMATOCRIT 32.9 % (36-46); HEMOGLOBIN 11.2 g/dL (12.0-16.0); LYMPHOCYTES # (AUTO) 3.7 K/uL (1.0-4.8); LYMPHOCYTES % (AUTO) 37.4 % (22.0-44.0); MEAN CORPUSCULAR HEMOGLOBIN 32.9 pg (26.0-34.0); MEAN CORPUSCULAR VOLUME 97 fL (80-100); MONOCYTES # (AUTO) 1.4 K/uL (0.1-1.0); MONOCYTES % (AUTO) 14.1 % (2.0-9.0); NEUTROPHILS # (AUTO) 4.5 K/uL (1.8-7.7); NEUTROPHILS % (AUTO) 45.5 % (40.0-70.0); PLATELET COUNT (AUTO) 389 K/uL (150-450); RED CELL DISTRIBUTION WIDTH 13.8 % (11.5-14.5)
[2023-01-06 07:04] LABS: ALANINE AMINOTRANSFERASE 38 U/L (12-78); ALBUMIN 1.9 g/dL (3.4-5.0); ALKALINE PHOSPHATASE 95 U/L (46-116); ANION GAP 6 mmol/L (8-16); ASPARTATE AMINOTRANSFERASE 41 U/L (15-37); BILIRUBIN,TOTAL 0.3 mg/dL (0.1-1.0); CALCIUM, TOTAL 10.4 mg/dL (8.8-10.5); CARBON DIOXIDE 27 mmol/L (22-29); CHLORIDE 109 mmol/L (98-107); CREATININE 0.92 mg/dL (0.60-1.30); GLOMERULAR FILTR. RATE CALC > 60 mL/min (>60); GLUCOSE,RANDOM 155 mg/dL (70-110); POTASSIUM 4.7 mmol/L (3.5-5.1); SODIUM SERUM 142 mmol/L (136-145); TOTAL PROTEIN, SERUM 7.7 g/dL (6.4-8.2)
[2023-01-06 07:35] VITALS: BP 149/73; PULSE 73; RESP 19; TEMP 98.2
[2023-01-06] MEDS: PANTOPRAZOLE SODIUM 40 MG/VIAL IVP SCH (08:21)
[2023-01-06] MEDS ORDERED: AmLODIPine BESYLATE 5 MG TABLET PO SCH (09:00)
[2023-01-06] MEDS ORDERED: LinaGLIPtin 5 MG TABLET PO SCH (09:00)
[2023-01-06] MEDS ORDERED: ASPIRIN 81 MG CHEWABLE TABLET PO SCH (09:00)
[2023-01-06] MEDS ORDERED: LOSARTAN POTASSIUM 25 MG TABLET PO SCH (09:00)
[2023-01-06 11:38] VITALS: BP 132/60; PULSE 75; RESP 16; TEMP 97.9
[2023-01-06 15:58] VITALS: BP 149/77; PULSE 68; RESP 18; TEMP 97.7
[2023-01-06] MEDS ORDERED: LOSA-381 PO (16:35)
[2023-01-06] MEDS ORDERED: HEPA500018 SQ (18:00)
[2023-01-06] MEDS ORDERED: ACET-2247 PO (18:03)
[2023-01-06] MEDS ORDERED: BISA-151 PO (18:04)
[2023-01-06] MEDS ORDERED: MELA5TAB40 PO (18:05)
[2023-01-06] MEDS ORDERED: DIVA125T2 PO (18:07)
[2023-01-06 20:02] LABS: GLUCOMETER DEV NAME(LOC) 5S.2C
[2023-01-06 20:02] LABS: GLUCOMETER DEV NAME(LOC) 5N.1C
== END 2023-01-06 17:45 | DRG 871 ==
LOC: EMS 12:55 → AHU 15:07 → 5S 20:20
PROVIDERS: ADMIT Internal Medicine; ATTEND Internal Medicine
PROC: 05HB33Z Insertion of Infusion Device into Right Basilic Vein, Percutaneous Approach (ICD-10-PCS; principal; 2023-01-01)
DX: A41.9 Sepsis, unspecified organism (principal); G92.8 Other toxic encephalopathy; N39.0 Urinary tract infection, site not specified; E11.40 Type 2 diabetes mellitus with diabetic neuropathy, unspecified; F03.90 Unspecified dementia, unspecified severity, without behavioral disturbance, psychotic disturbance, mood disturbance, and anxiety; I10 Essential (primary) hypertension; B96.1 Klebsiella pneumoniae [K. pneumoniae] as the cause of diseases classified elsewhere; E03.9 Hypothyroidism, unspecified; B96.20 Unspecified Escherichia coli [E. coli] as the cause of diseases classified elsewhere; F31.9 Bipolar disorder, unspecified; E78.00 Pure hypercholesterolemia, unspecified; F20.9 Schizophrenia, unspecified; Z79.82 Long term (current) use of aspirin; Z79.899 Other long term (current) drug therapy; Z79.4 Long term (current) use of insulin; Z79.84 Long term (current) use of oral hypoglycemic drugs; Z91.018 Allergy to other foods
CPT/HCPCS: 36245; 36569; 51702; 70496; 70498; 71045; 76937; 80048; 80053; 80061; 80307; 81001; 82948; 82962; 83605; 83880; 84145; 84443; 84484; 85025; 85610; 85730; 86850; 86900; 86901; 87040; 87077; 87081; 87086; 87186; 87205; 92526; 92610; 93005; 97110; 97112; 97163; 97167; 97530; 97535; 99291; C9113; J0131; J1644; J1885; J1956; J2543; J7030; J7050; Q9967; 36415-L1; 36415-TC; 70450; 70450-TC

== ENCOUNTER 2023-05-18 14:06 | Emergency (ER) | payer MEDICARE, OTHER ==
[~2023-05-18] VITALS: Ht 160 cm; Wt 63.6 kg
[~2023-05-18 14:06] MED LIST changes: +ACET-2247 PO; +BISA-151 PO; +DIVA125T2 PO; -GLIP5TAB12 PO; +GLIP5TAB16 PO; +HEPA500018 SQ; +MELA5TAB40 PO
[2023-05-18 14:20] VITALS: TEMP 98.5
[2023-05-18 15:50] LABS: APPEARANCE,URINE HAZY (CLEAR); BILIRUBIN,URINE NEGATIVE (NEGATIVE); COLOR,URINE LIGHT YELLOW (YELLOW); GLUCOSE, URINE (UA) >=1000 mg/dL (NEGATIVE); KETONES,URINE NEGATIVE (NEGATIVE); LEUKOCYTE ESTERASE ,URINE MODERATE (NEGATIVE); NITRATE,URINE NEGATIVE (NEGATIVE); OCCULT BLOOD,URINE NEGATIVE (NEGATIVE); PH,URINE 5.5 (5.0-8.0); PROTEIN,URINE NEGATIVE (NEGATIVE); SPECIFIC GRAVITIY, URINE 1.014 (1.003-1.030); UROBILINOGEN,URINE <=1.0 mg/dL (<=1.0)
[2023-05-18 16:00] LABS: BACTERIA,URINE Moderate /HPF (None Seen); RBC,URINE None Seen /HPF (0-2); SQUAMOUS EPITHELIAL CELL,UR Few /LPF (None Seen)
[2023-05-18] MEDS ORDERED: INSULIN REGULAR, HUMAN 100 UNITS/ML IVP ONE (17:15)
[2023-05-18] MEDS ORDERED: SODIUM CHLORIDE 0.9% 1,000 ML IV ONE (17:15)
[2023-05-18 17:35] LABS: PH,URINE DRUG SCREEN 5.5 (5.0-8.0)
[2023-05-18 17:42] LABS: ALCOHOL, URINE DRUG SCREEN NEGATIVE (NEGATIVE); AMPHET/METH SCREEN,URINE NEGATIVE (NEGATIVE); BARBITURATE SCREEN, URINE NEGATIVE (NEGATIVE); BENZODIAZEPINES SCREEN,URINE NEGATIVE (NEGATIVE); CANNABINOID SCREEN,URINE NEGATIVE (NEGATIVE); COCAINE SCREEN,URINE NEGATIVE (NEGATIVE); METHADONE SCREEN, URINE NEGATIVE (NEGATIVE); OPIATE SCREEN,URINE NEGATIVE (NEGATIVE); PHENCYCLIDINE SCREEN,URINE NEGATIVE (NEGATIVE)
[2023-05-18 17:45] LABS: BASOPHILS % (AUTO) 0.9 % (0.0-2.0); EOSINOPHILS % (AUTO) 0.9 % (1.0-6.0); HEMATOCRIT 39.4 % (36-46); HEMOGLOBIN 13.1 g/dL (12.0-16.0); LYMPHOCYTES # (AUTO) 3.1 K/uL (1.0-4.8); LYMPHOCYTES % (AUTO) 37.1 % (22.0-44.0); MEAN CORPUSCULAR HEMOGLOBIN 30.2 pg (26.0-34.0); MEAN CORPUSCULAR HGB CONC 33.4 G/dL (31.0-37.0); MEAN CORPUSCULAR VOLUME 90 fL (80-100); MONOCYTES # (AUTO) 0.5 K/uL (0.1-1.0); MONOCYTES % (AUTO) 6.4 % (2.0-9.0); NEUTROPHILS # (AUTO) 4.5 K/uL (1.8-7.7); NEUTROPHILS % (AUTO) 54.7 % (40.0-70.0); PLATELET COUNT (AUTO) 437 K/uL (150-450); RED BLOOD CELL COUNT(AUTO) 4.36 MIL/uL (4.00-5.20); WHITE BLOOD COUNT (AUTO) 8.3 K/uL (4.5-11.0)
[2023-05-18 17:58] LABS: ANION GAP 9 mmol/L (8-16); CALCIUM, TOTAL 10.9 mg/dL (8.8-10.5); CARBON DIOXIDE 28 mmol/L (22-29); CHLORIDE 101 mmol/L (98-107); CREATININE 1.16 mg/dL (0.60-1.30); GLOMERULAR FILTR. RATE CALC 57 mL/min (>60); GLUCOSE,RANDOM 346 mg/dL (70-110); POTASSIUM 3.5 mmol/L (3.5-5.1); SODIUM SERUM 138 mmol/L (136-145); UREA NITROGEN, BLOOD 8 mg/dL (7-18)
[2023-05-18 18:03] LABS: ALANINE AMINOTRANSFERASE 18 U/L (12-78); ALBUMIN 3.4 g/dL (3.4-5.0); ALKALINE PHOSPHATASE 257 U/L (46-116); ASPARTATE AMINOTRANSFERASE 12 U/L (15-37); BILIRUBIN,TOTAL 0.2 mg/dL (0.1-1.0); LIPASE 37 U/L (16-77); TOTAL PROTEIN, SERUM 9.2 g/dL (6.4-8.2)
[2023-05-18 18:05] LABS: TROPONIN I-HIGH SENSITIVITY 8 ng/L (<51)
[2023-05-18 18:06] LABS: LACTIC ACID 0.9 mmol/L (0.4-2.0)
[2023-05-18 18:52] LABS: ALCOHOL, BLOOD (SERUM) < 3 mg/dL (0-10)
[2023-05-18 19:06] LABS: ACETONE,BLOOD NEGATIVE (NEGATIVE)
[2023-05-18 19:20] VITALS: BP 166/90; PULSE 82; RESP 16
[2023-05-18] MEDS ORDERED: MECL-134 PO (19:54)
[2023-05-18] MEDS ORDERED: CEPH-558 PO (19:54)
[2023-05-18] MEDS ORDERED: METF-1211 PO (19:54)
[2023-05-18 20:01] LABS: GLUCOMETER DEV NAME(LOC) ER.6; GLUCOSE,POINT OF CARE 154 MG/DL (70-110)
== END 2023-05-18 20:47 | disposition home or self-care (01) ==
LOC: EMS 14:06
DX: E11.65 Type 2 diabetes mellitus with hyperglycemia (principal); N39.0 Urinary tract infection, site not specified; R42 Dizziness and giddiness; F31.9 Bipolar disorder, unspecified; E78.00 Pure hypercholesterolemia, unspecified; I10 Essential (primary) hypertension; E03.9 Hypothyroidism, unspecified; Z98.890 Other specified postprocedural states; Z91.018 Allergy to other foods
CPT/HCPCS: 99285; 96374; 71045; 96375; 80053; 81001; 82009; 83605; 83690; 84484; 85025; 36415; 87086; 87186; 93005; 80307; 82962; G0480; J1815; J7030